=== PATIENT | female | born 1960 | race Caucasian/White ===

== ENCOUNTER 2019-03-10 09:17 | Inpatient (IN) | payer OTHER ==
[~2019-03-10] VITALS: Ht 170.2 cm; Wt 106.6 kg
--- OUTSIDE RECORDS SUMMARY | ~2019-03-10 | XMS | Clinical Summary ---
Demographics + + + | Address | [address] | | | [place] [address] | + + + | Home Phone | | + + + | Preferred Language | Unknown | + + + | Marital Status | | + + + | Scientologist Affiliation | 1028 | + + + | Race | Unknown | + + + | Ethnic Group | Unknown | + + + Author + + + | Author | [facility] | | | and [place] | + + + | Organization | [facility] | | | and [place] | + + + | Address | Unknown | + + + | Phone | Unavailable | + + + Support + + +---------+ + | Name | Relationship | Address | Phone | + + +---------+ + | Sunita Tran | ECON | Unknown | | + + +---------+ + Care Team Providers + +------+ + | Care Sizing End Bander Name | Role | Phone | + +------+ + | Hellen Barnett | PP | | | PA-C | | | + +------+ + Allergies + + + + + + | Active Allergy | Reactions | Severity | Noted | Comments | | | | | Date | | + + + + + + | Amoxicillin | Nausea And Vomiting | | 04/13/20 | | | | | | 17 | | + + + + + + | Codeine | Swelling | | 04/13/20 | Tongue swelling | | | | | 17 | | + + + + + + | Hydrocodone | Itching | | 04/13/20 | | | | | | 17 | | + + + + + + Medications + + + +---------+------+------+-------+ | Medication | Sig | Dispensed | Refills | Star | End | Statu | | | | | | t | Date | s | | | | | | Date | | | + + + +---------+------+------+-------+ | acyclovir | Take 400 mg by mouth | | 0 | | | Activ | | (ZOVIRAX) 400 MG | Daily. | | | | | e | | tablet | | | | | | | + + + +---------+------+------+-------+ | omeprazole | Take 20 mg by mouth | | 0 | | | Activ | | (PRILOSEC) 20 mg | every morning | | | | | e | | capsule | (before breakfast). | | | | | | + + + +---------+------+------+-------+ | traZODone | Take 50 mg by mouth | | 0 | | | Activ | | (DESYREL) 50 mg | nightly. | | | | | e | | tablet | | | | | | | + + + +---------+------+------+-------+ | albuterol | Inhale 2 puffs into | | 0 | | | Activ | | (VENTOLIN HFA) 90 | the lungs every 6 | | | | | e | | mcg/puff inhaler | hours as needed for | | | | | | | | Wheezing. | | | | | | + + + +---------+------+------+-------+ | tiZANidine | Take 1 tablet by | 30 | 0 | 07/3 | | Activ | | (ZANAFLEX) 4 mg | mouth every 6 hours | tablet | | 11/11 | | e | | tabletIndications: | as needed for Muscle | | | 18 | | | | S/P cervical spinal | spasms. | | | | | | | fusion, Right arm | | | | | | | | pain | | | | | | | + + + +---------+------+------+-------+ Active Problems + + + | Problem | Noted Date | + + + | DDD (degenerative disc disease), cervical | 06/03/2017 | + + + | S/P cervical spinal fusion | 06/03/2017 | + + + | Cervical subluxation, initial encounter | 06/03/2017 | + + + | Cervical spondylosis with radiculopathy | 06/03/2017 | + + + Family History + + +------+ + | Medical History | Relation | Name | Comments | + + +------+ + | Rheum arthritis | Brother | | | + + +------+ + | Cancer | Brother | | | + + +------+ + | Diabetes | Father | | | + + +------+ + | Diabetes | Mother | | | + + +------+ + | Heart disease | Mother | | | + + +------+ + + +------+ + + | Relation | Name | Status | Comments | + +------+ + + | Brother | | | | + +------+ + + | Brother | | | | + +------+ + + | Father | | | | + +------+ + + | Mother | | | | + +------+ + + Social History + +-------+ +--------+ + | Tobacco Use | Types | Packs/Day | Years | Date | | | | | Used | | + +-------+ +--------+ + | Former Smoker | | 1 | 20 | Quit: 04/13/2005 | + +-------+ +--------+ + + +---+---+---+ | Smokeless Tobacco: | | | | | Never Used | | | | + +---+---+---+ + + +---------+ + | Alcohol Use | Drinks/We | oz/Week | Comments | | | ek | | | + + +---------+ + | Yes | | | social | + + +---------+ + + + + | Sex Assigned at | Date Recorded | | | | + + + | Not on file | | + + + + + + + | Job Start Date | Occupation | Industry | + + + + | Not on file | Not on file | Not on file | + + + + + + + + | Travel History | Travel Start | Travel End | + + + + + + | No recent travel history available. | + + Last Filed Vital Signs + + + + | Vital Sign | Reading | Time Taken | + + + + | Blood Pressure | 116/76 | 08/22/2018 1428 PDT | + + + + | Pulse | 82 | 08/22/20181427 PDT | + + + + | Temperature | 35.4 C (95.8 F) | 08/15/2017747 PDT | + + + + | Respiratory Rate | 16 | 05/22/20181347 PDT | + + + + | Oxygen Saturation | 94% | 08/15/20170 PDT | + + + + | Inhaled Oxygen | - | - | | Concentration | | | + + + + | Weight | 110.4 kg (243 lb 6.2 | 08/22/20181427 PDT | | | oz) | | + + + + | Height | 170.2 cm (5' 7") | 08/22/20181427 PDT | + + + + | Body Mass Index | 38.12 | 08/22/20181427 PDT | + + + + Plan of Treatment + + + + + | Health Maintenance | Due Date | Last Done | Comments | + + + + + | Hepatitis C | | | | | Screening | 2 | | | + + + + + | Vaccine: | | | | | Dtap/Tdap/Td (1 - | 1 | | | | Tdap) | | | | + + + + + | Cervical Cancer | | | | | Screening (Pap) | 2 | | | + + + + + | Breast Cancer | | | | | Screening (Ages | 2 | | | | 50-74) | | | | + + + + + | Colorectal Cancer | | | | | Screening | 2 | | | | (Colonoscopy) | | | | + + + + + | Vaccine: Zoster (1 | | | | | of 2) | 2 | | | + + + + + | Vaccine: Influenza | | | | | (Season Ended) | 9 | | | + + + + + Implants + +--------+--------+ +--------+--------+--------+ | Implanted | Type | Area | Manufacture | Device | Shelf | Model | | | | | r | | Expira | / | | | | | | Identi | tion | Serial | | | | | | fier | Date | / Lot | + +--------+--------+ +--------+--------+--------+ | Imp Spn Lakshmi Peek [id number] - | Generi | N/A: | [employer] - | | 06/15/ | [id number] | | [id number]: Qty: 1 | c | Spine | MEDT | | 2024 | 1 / | | on 08/14/2017 by Ambrocio Andino | | Isabel | | | | /[id number] | | MD Cris | | al | | | | | + +--------+--------+ +--------+--------+--------+ | Imp Spn Lakshmi Peek [id number] - | Generi | N/A: | [employer] - | | 03/24/ | [id number] | | [id number]: Qty: 1 | c | Spine | MEDT | | 2024 | 1 / | | on 08/14/2017 by Ambrocio Andino | [place] | | | | /[id number] | | MD Cris | | al | | | | | + +--------+--------+ +--------+--------+--------+ | Imp Spn Plt Ti Zevo 57mm 3lvl | Generi | N/A: | [employer] - | | | [id number] | | - [id number]: Qty: 1 | c | Spine | MEDT | | | / / | | on 08/14/2017 by Ambrocio Andino | | Isabel | | | | | | MD Cris | | al | | | | | + +--------+--------+ +--------+--------+--------+ | Putty Bone Dbm Grftn 2.5cc - | Graft | N/A: | [employer] - | | 05/21/ | [id number] | | [id number]: Qty: 1 | | Spine | MEDT | | 2020 | | | on 08/14/2017 by Ambrocio Andino | | Isabel | | | | /[id number] | | MD Cris | | al | | | | [id number] | | | | | | | | / | + +--------+--------+ +--------+--------+--------+ | Screw D-Thrd Slf-Drl 3.5x13mm | Screw | N/A: | [employer] - | | | [id number] | | - [id number]: Qty: 2 | | Spine | MEDT | | | 3 / / | | on 08/14/2017 by Ambrocio Andino | | Isabel | | | | | | MD Cris | | colette | | | | | + +--------+--------+ +--------+--------+--------+ | Screw D-Thrd Slf-Drl 4.0x15mm | Screw | N/A: | [employer] - | | | [id number] | | - [id number]: Qty: 6 | | Spine | MEDT | | | 5 / / | | on 08/14/2017 by Ambrocio Andino | | Isabel | | | | | | MD Cris | | al | | | | | + +--------+--------+ +--------+--------+--------+ Results Not on filefrom Last 3 Months Insurance + +--------+ +--------+ +---------+------+ | Payer | Benefi | Subscriber | Effect | Phone | Address | Type | | | t Plan | ID | jhon | | | | | | / | | Dates | | | | | | Group | | | | | | + +--------+ +--------+ +---------+------+ | [employer] | NIDHI | [id number] | 05/23/20 | [phone] | | PPO | | | CSOUR | | 17-Pre | 2 | | | | | E | | sent | | | | | | FIRST | | | | | | | | CHOICE | | | | | | + +--------+ +--------+ +---------+------+ + +--------+ +--------+ + + | Guarantor Name | Accoun | Relation to | Date | Phone | Billing Address | | | t Type | Patient | of | | | | | | | | | | + +--------+ +--------+ + + | Oanh Mancini | Person | Self | [birth year] | [address] | | | al/Fam | | 1959 | [phone] | [place] | | | carlos | | | 5 (Home) | [address] | | | | | | [phone] | | | | | | | 7 (Work) | | + +--------+ +--------+ + + Advance Directives Patient has advance care planning documents, and code status on file. For more information, please contact:[facility] [place] [address] + + + + + | Code Status | Date | Date | Comments | | | Activated | Inactivated | | + + + + + | Full Code | 08/14/2017 | 08/15/2017 | | | | 14:33 | 13:20 | | + + + + +
--- OUTSIDE RECORDS SUMMARY | ~2019-03-10 | XMS | Clinical Summary ---
Demographics + + + | Address | [address] | | | [place] [address] | + + + | Home Phone | | + + + | Preferred Language | Unknown | + + + | Marital Status | | + + + | Taoism Affiliation | 1028 | + + + | Race | Unknown | + + + | Ethnic Group | Unknown | + + + Author + + + | Author | [facility] | | | and [place] | + + + | Organization | [facility] | | | and [place] | [...] Team Providers + +------+ + | Care Copping Machine Operator Name | Role | Phone | + [...] +--------+--------+ +--------+--------+--------+ | Imp Spn Lakshmi Peek [id number] - | Generi | N/A: | [employer] - | | 06/15/ | [id number] | | [id number]: Qty: 1 | c | Spine | MEDT | | 2024 | 1 / | | on 08/14/2017 by Ambrocio Andino | | Isabel | | | | /[id number] | | MD Cris | | al | | | | | + +--------+--------+ +--------+--------+--------+ | Imp Spn Lakshmi Peek [id number] - | Generi | N/A: | [employer] - | | 03/24/ | [id number] | | [id number]: Qty: 1 | c | Spine | MEDT | | 2024 | 1 / | | on 08/14/2017 by Ambrocio Andino | [place] | | | | /[id number] | | MD Cris | | al | | | | | + +--------+--------+ +--------+--------+--------+ | Imp Spn Plt Ti Zevo 57mm 3lvl | Generi | N/A: | [employer] - | | | [id number] | | - [id number]: Qty: 1 | c | Spine | MEDT | | | / / | | on 08/14/2017 by Ambrocio Andino | | Isabel | | | | | | MD Cris | | al | | | | | + +--------+--------+ +--------+--------+--------+ | Putty Bone Dbm Grftn 2.5cc - | Graft | N/A: | [employer] - | | 05/21/ | [id number] | | [id number]: Qty: 1 | | Spine | MEDT [...] N/A: | [employer] - | | | [id number] | | - [id number]: Qty: 2 | | Spine | MEDT | | | 3 / / | | on 08/14/2017 by Ambrocio Andino | | Isabel | | | | | | MD Cris | | colette | | | | | + +--------+--------+ +--------+--------+--------+ | Screw D-Thrd Slf-Drl 4.0x15mm | Screw | N/A: | [employer] - | | | [id number] | | - [id number]: Qty: 6 | | Spine | MEDT [...] +--------+ +---------+------+ | [employer] | NIDHI | [id number] | 05/23/20 | [phone] | | PPO | | | CSOUR [...] carlos | | | 5 (Home) | [phone] | | | | | | [phone] | | | | | | | 7 (Work) | | + +--------+ +--------+ + + Advance Directives Patient has advance care planning documents, and code status on file. For more information, please contact:[facility] [place] [address] + + + + + | Code Status | Date | Date | Comments | | | Activated | Inactivated | | + + + + + | Full Code | 08/14/2017 | 08/15/2017 | | | | 14:33 | 13:20 | | + + + + +
--- OUTSIDE RECORDS SUMMARY | ~2019-03-10 | XMS | Clinical Summary ---
Demographics + + + | Address | [address] | | | [place] [address] | + + + | Home Phone | | + + + | Preferred Language | Unknown | + + + | Marital Status | | + + + | Advent Affiliation | 1028 | + + + | Race | Unknown | + + + | Ethnic Group | Unknown | + + + Author + + + | Author | [facility] | | | and [place] | + + + | Organization | [facility] | | | and [place] [...] Team Providers + +------+ + | Care Otm Consultant Name | Role | Phone | + [...] +--------+--------+ +--------+--------+--------+ | Imp Spn Lakshmi Peek [id number] - | Generi | N/A: | [employer] - | | 06/15/ | [id number] | | [id number]: Qty: 1 | c | Spine | MEDT | | 2024 | 1 / | | on 08/14/2017 by Ambrocio Andino | | Isabel | | | | /[id number] | | MD Cris | | al | | | | | + +--------+--------+ +--------+--------+--------+ | Imp Spn Lakshmi Peek [id number] - | Generi | N/A: | [employer] - | | 03/24/ | [id number] | | [id number]: Qty: 1 | c | Spine | MEDT | | 2024 | 1 / | | on 08/14/2017 by Ambrocio Andino | [place] | | | | /[id number] | | MD Cris | | al | | | | | + +--------+--------+ +--------+--------+--------+ | Imp Spn Plt Ti Zevo 57mm 3lvl | Generi | N/A: | [employer] - | | | [id number] | | - [id number]: Qty: 1 | c | Spine | MEDT | | | / / | | on 08/14/2017 by Ambrocio Andino | | Isabel | | | | | | MD Cris | | al | | | | | + +--------+--------+ +--------+--------+--------+ | Putty Bone Dbm Grftn 2.5cc - | Graft | N/A: | [employer] - | | 05/21/ | [id number] | | [id number]: Qty: 1 | | Spine | MEDT [...] N/A: | [employer] - | | | [id number] | | - [id number]: Qty: 2 | | Spine | MEDT | | | 3 / / | | on 08/14/2017 by Ambrocio Adnino | | Isabel | | | | | | MD Cris | | colette | | | | | + +--------+--------+ +--------+--------+--------+ | Screw D-Thrd Slf-Drl 4.0x15mm | Screw | N/A: | [employer] - | | | [id number] | | - [id number]: Qty: 6 | | Spine | MEDT [...] +--------+ +---------+------+ | [employer] | NIDHI | [id number] | 05/23/20 | [phone] | | PPO | | | CSOUR [...] carlos | | | 5 (Home) | [address] | | | | | | [phone] | | | | | | | 7 (Work) | | + +--------+ +--------+ + + Advance Directives Patient has advance care planning documents, and code status on file. For more information, please contact:[facility] [place] [address] + + + + + | Code Status | Date | Date | Comments | | | Activated | Inactivated | | + + + + + | Full Code | 08/14/2017 | 08/15/2017 | | | | 14:33 | 13:20 | | + + + + +
--- OUTSIDE RECORDS SUMMARY | ~2019-03-10 | XMS | Clinical Summary ---
Demographics + + + | Address | [address] | | | [place] [address] | + + + | Home Phone | | + + + | Preferred Language | Unknown | + + + | Marital Status | | + + + | Confucianism Affiliation | 1028 | + + + | Race | Unknown | + + + | Ethnic Group | Unknown | + + + Author + + + | Author | [facility] | | | and [place] | + + + | Organization | [facility] | | | and [place] [...] Team Providers + +------+ + | Care Communications Associate Name | Role | Phone | + [...] +--------+--------+ +--------+--------+--------+ | Imp Spn Lakshmi Peek [id number] - | Generi | N/A: | [employer] - | | 06/15/ | [id number] | | [id number]: Qty: 1 | c | Spine | MEDT | | 2024 | 1 / | | on 08/14/2017 by Abmrocio Andino | | Isabel | | | | /[id number] | | MD Cris | | al | | | | | + +--------+--------+ +--------+--------+--------+ | Imp Spn Lakshmi Peek [id number] - | Generi | N/A: | [employer] - | | 03/24/ | [id number] | | [id number]: Qty: 1 | c | Spine | MEDT | | 2024 | 1 / | | on 08/14/2017 by Ambrocio Andino | [place] | | | | /[id number] | | MD Cris | | al | | | | | + +--------+--------+ +--------+--------+--------+ | Imp Spn Plt Ti Zevo 57mm 3lvl | Generi | N/A: | [employer] - | | | [id number] | | - [id number]: Qty: 1 | c | Spine | MEDT | | | / / | | on 08/14/2017 by Ambrocio Andino | | Isabel | | | | | | MD Cris | | al | | | | | + +--------+--------+ +--------+--------+--------+ | Putty Bone Dbm Grftn 2.5cc - | Graft | N/A: | [employer] - | | 05/21/ | [id number] | | [id number]: Qty: 1 | | Spine | MEDT [...] N/A: | [employer] - | | | [id number] | | - [id number]: Qty: 2 | | Spine | MEDT | | | 3 / / | | on 08/14/2017 by Ambrocio Andino | | Isabel | | | | | | MD Cris | | colette | | | | | + +--------+--------+ +--------+--------+--------+ | Screw D-Thrd Slf-Drl 4.0x15mm | Screw | N/A: | [employer] - | | | [id number] | | - [id number]: Qty: 6 | | Spine | MEDT [...] +--------+ +---------+------+ | [employer] | NIDHI | [id number] | 05/23/20 | [phone] | | PPO [...] carlos | | | 5 (Home) | [id number] | | | | | | [phone] | | | | | | | 7 (Work) | | + +--------+ +--------+ + + Advance Directives Patient has advance care planning documents, and code status on file. For more information, please contact:[facility] [place] [address] + + + + + | Code Status | Date | Date | Comments | | | Activated | Inactivated | | + + + + + | Full Code | 08/14/2017 | 08/15/2017 | | | | 14:33 | 13:20 | | + + + + +
[~2019-03-10 09:17] MED LIST: ACYCLOVIR400 MG PO; OMEPRAZOLE20 MG PO; TRAZODONE HCL50 MG PO
--- NOTE | 2019-03-10 12:57 | NUR ---
PT ARRIVED TO ROOM 122, REPORT RECEIVED FROM SUPPORT DBA. PT ALERT AND ORIENTED RATES PAIN AT 5/10 BUT STATES THIS IS TOLERABLE. PT DENIES NEED FOR PAIN MEDICATION AT THIS TIME. ASSESSMENT COMPLETED. CALL LIGHT IN REACH. WES DALE IN DOING VS'S. PT DENIES FURTHER NEEDS/CONCERNS AT THIS TIME.
--- NOTE | 2019-03-10 15:10 | EKG ---
[facility] [address] [facility] [place], [place] [address] Signed Normal sinus rhythm Normal ECG No previous ECGs available Confirmed by DAKOTA BRAR DO ([id number]) on 03/10/2019 3:10:42 PM Electronically Signed By: DAKOTA BRAR DO 03/10/19 1510 PATIENT NAME: DAKOTA BOONE Electrocardiogram DATE OF : 64 PHYSICIAN: DAKOTA BRAR DO REPORT #: [id number] REPORT IS CONFIDENTIAL AND NOT TO BE RELEASED WITHOUT AUTHORIZATION
--- NOTE | 2019-03-10 17:37 | NUR ---
Medications reconciled using pharmacy records and patient interview. Patient was hoping to take her home meds, but explained to patient that unfortunately, hospital policy requires that house pharmacy medications be used. Patient regularly takes trazodone 50mg at hs for sleep, so a request will be made to Dr Phillips for order for prn trazodone.
--- NOTE | 2019-03-10 17:38 | NUR ---
PT RESTING IN BED WATCHING TV AND VISITING WITH FAMILY AT BEDSIDE. PT REPORTS ACHING PAIN OF 7/10 TO ABD THAT COMES AND GOES IN WAVES. PT DENIES NASUEA. PRN PAIN MEDICAITONS ADMINIASTERED SEE EMAR. CALL LIGHT AND H20 IN REACH. NO FURHTER NEEDS VOICED.
--- NOTE | 2019-03-10 18:22 | CONS ---
[facility] [address] [place], [place] [address] Signed DATE OF CONSULTATION: 03/10/2019 CHIEF COMPLAINT: Left lower quadrant abdominal pain. HISTORY OF PRESENT ILLNESS: Oanh is a 58-year-old female who is known about her diverticular disease since 2013. She has had at least one prior documented attack in 2013. She had several other episodes of left lower quadrant abdominal pain treated with outpatient antibiotics that resolved. On this occasion, she waited six days hoping to see her primary care provider tomorrow. However, her pain is getting worse and she finally came to emergency room for evaluation. She is not systemically ill or toxic. Her white count is borderline. It is actually normal at 9.9. However, she is quite tender in the left lower quadrant. CT scan of abdomen and pelvis was performed and she has a very thickened sigmoid colon with a 2 cm fluid collection in the wall of the proximal sigmoid colon. No obvious abscess or free air. In the meantime, she has received some IV Dilaudid and her antibiotics including cefepime and Flagyl. I was asked to admit her as a general surgeon on-call. PAST MEDICAL HISTORY: Diverticulosis, colonic polyps, insomnia, gastroesophageal reflux disease, obesity, and right-sided abdominal wall shingles since age 8. PAST SURGICAL HISTORY: Full hysterectomy for bleeding, laparoscopic cholecystectomy, sinus surgery, and one if not two prior colonoscopies. SOCIAL HISTORY: She quit smoking. She has two or three drinks in a week. She is now and has 2 children. Her has a son and a daughter. Aaron Barnett is her primary care provider. She prefers the [facility]. 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 FAMILY HISTORY: Mom had diabetes, coronary artery disease, and had a CABG x4. Dad had diabetes. Her brother of Goodwin sarcoma. Her other brother had very significant rheumatoid arthritis. REVIEW OF SYSTEMS: She had 10 systems reviewed. There is nothing new to add. ALLERGIES: Codeine, hydrocodone, oxycodone, hydrocortisone. She said Dilaudid is fine. MEDICATIONS: Electronically Signed By: TAYLOR PHILLIPS MD 03/10/19 1822 PATIENT NAME: OANH BOONE CONSULTATION DATE OF : 64 REPORT #: [id number] PHYSICIAN: TAYLOR PHILLIPS MD PCP: AARON BARNETT PA-C REPORT IS CONFIDENTIAL AND NOT TO BE RELEASED WITHOUT AUTHORIZATION [facility] [address] [place], [place] [address] Signed Omeprazole, acyclovir, and trazodone. PHYSICAL EXAMINATION: VITAL SIGNS: Her blood pressure is 113/67, heart rate 84, respiratory rate 20, and temperature 98.8. She is 5 feet 7 inches tall, 106 kg exam. GENERAL: Oanh is a 58-year-old female who generally appears healthy and at her stated age. She is obese. Her granddaughter is with her along with our nurse, Drew. She does not appear systemically ill or toxic. Her pain is controlled. LUNGS: Clear to auscultation. HEART: Regular rate and rhythm. ABDOMEN: Obese, but soft. She is tender in the left lower quadrant despite Dilaudid. LABORATORY DATA: Her white blood cell count is 9.9, neutrophils are 69, hemoglobin is 13. BUN 15, creatinine 0.75, glucose 109. Liver function tests are negative. Albumin is 4.0, lipase 11. Urine specific gravity is 1.024. RADIOGRAPHIC STUDIES: The CT scan of abdomen and pelvis is reviewed along with the report. She clearly has a very thickened sigmoid colon. There is a 2 cm fluid collection in the wall of the proximal sigmoid colon. ASSESSMENT AND PLAN: Oanh is a 58-year-old female who presents with sigmoid diverticulitis. She has been admitted, given IV fluids, Dilaudid and some antibiotics. We are going to continue in that direction. We will let her have some clear liquids. She understands this could take 2 or 3 or 4 days to clear before we can send her home on p.o. antibiotics. Once again, she is very reticent to have surgery. She is hoping this will clear the antibiotics and that she can avoid surgery. I reviewed diverticulitis with her in detail. She understands that if this becomes a significant issue for her, she will need surgery. She has expressed understanding and agrees above plan. Taylor Phillips MD ALB/MODL /[id number] cc: Aaron Barnett Electronically Signed By: TAYLOR PHILLIPS MD 03/10/19 1822 PATIENT NAME: OANH BOONE CONSULTATION DATE OF : 64 REPORT #: [id number] PHYSICIAN: TAYLOR PHILLIPS MD PCP: AARON BARNETT PA-C REPORT IS CONFIDENTIAL AND NOT TO BE RELEASED WITHOUT AUTHORIZATION [facility] [address] [facility] [place], [place] [address] Signed Taylor Phillips MD Copies: TAYLOR PHILLIPS MD ~ Electronically Signed By: TAYLOR PHILLIPS MD 03/10/19 1822 PATIENT NAME: OANH BOONE Rick CONSULTATION DATE OF : 64 REPORT #: [id number] PHYSICIAN: TAYLOR PHILLIPS MD PCP: AARON BARNETT PA-C REPORT IS CONFIDENTIAL AND NOT TO BE RELEASED WITHOUT AUTHORIZATION
--- NOTE | 2019-03-10 18:34 | NUR ---
PT RESTING SUPINE IN BED WATCHING TV AND VISITING WITH FAMILY AT BEDSIDE. CALL LIGHT AND H2O IN REACH. VSS. IV ABX INFUSING.
--- NOTE | 2019-03-10 19:10 | NUR ---
SHIFT REPORT RECEIVED FROM WILLISCAKATE LU AT BEDSIDE. PT AWAKE AND RESTING IN BED. IV FLUIDS AND IV ABX INFUSING, IV SITE WNL. PT REPORTS INTERMITTENT NAUSEA, BUT DENIES NEED FOR NAUSEA MEDICATION AT THIS TIME. PT INSTRUCTED TO USE CALL LIGHT IF NAUSEA WORSENS OR CONTINUES. PT VERBALIZES UNDERSTANDING. CALL LIGHT IN REACH.
--- NOTE | 2019-03-10 20:30 | NUR ---
SCHEDULED MEDICATIONS ADMINISTERED BY FRACTIONATION PLANT SUPERVISOR ROBERT (SEE EMAR). PRN PAIN MEDICATION ALSO ADMINISTERED.
--- NOTE | 2019-03-10 21:20 | NUR ---
ASSESSMENT COMPLETE. PT A/OX4, RATES PAIN 4-5, BUT DESCRIBES TOLERABLE. DENIES NEED FOR INTERVENTION AT THIS TIME. IV FLUIDS AND IV ABX INFUSING PER MD ORDERS, IV SITE WNL. PT REPORTED POSSIBLE LEAKING AT IV SITE AFTER VOIDING. CURRENT OPSITE REMOVED. IV ASSESSED. IV FLUSHED, BLOOD RETURN NOTED. CATHETER HUB TIGHTENED. NEW OPSITE IN PLACE, NO LEAKING NOTED. PT ON CLEAR LIQUID DIET, NO NAUSEA AT THIS TIME. BOWEL TONES ACTIVE. ABDOMEN TENDER. NO FURTHER NEEDS AT THIS TIME. CALL LIGHT IN REACH.
--- NOTE | 2019-03-10 21:30 | NUR ---
PT ASKING ABOUT POSSIBLE TRAZODONE FOR INSOMNIA. HOME DOSE 50 MG PRN AT BEDTIME PER MED REC. THIS RN SPOKE TO DR ARIAS ABOUT PT'S REQUEST. VERBAL ORDER READ BACK FOR 50 MG TRADOZONE PRN AT BEDTIME. PER DR ARIAS, "YOU CAN GIVE HER THE TRAZODONE. JUST USE CLINICAL JUDGEMENT. DON'T GIVE IT TO HER IF SHE'S TAKING A LOT OF NARCOTICS AND IS ALREADY SLEEPY".
--- NOTE | 2019-03-10 21:45 | NUR ---
ROUNDED CHARGE. PATIENT IS RESTING IN BED WITH EYES CLOSED, RR 17. CALL LIGHT IN REACH.
--- NOTE | 2019-03-10 23:26 | NUR ---
PT TALKING ON PERSONAL PHONE. APPEARS COMFORTABLE, NO FACIAL GRIMACING OR DISTRESS NOTED. CALL LIGHT IN REACH. PT DENIES FURTHER NEEDS.
--- NOTE | 2019-03-10 23:50 | NUR ---
SCHEDULED IV ABX INFUSING, IV SITE WNL. NO FURTHER NEEDS. CALL LIGHT IN REACH.
--- NOTE | 2019-03-11 00:20 | NUR ---
SCHEDULED IV ABX INFUSING (SEE EMAR). IV SITE WNL. PT AWAKE AND WATCHING TELEVISION. DENIES FURTHER NEEDS, CALL LIGHT IN REACH.
--- NOTE | 2019-03-11 01:48 | NUR ---
ASSESSMENT COMPLETE. NO NEW CONCERNS. VSS AND RECORDED. PT ON RA, A/OX4. REPORTS 5/10 PAIN. PRN PO DILAUDID ADMINISTERED. BOWEL TONES ACTIVE, PT DENIES NAUSEA. ABDOMENAL TENDERNESS NOTED. IV FLUIDS INFUSING PER MD ORDERS, IV SITE WNL. NO FURTHER NEEDS, CALL LIGHT IN REACH.
--- NOTE | 2019-03-11 01:51 | NUR ---
VITALS AND I&OS DONE AND CHARTED. BEDSIDE TABLE AND CALL LIGHT IN REACH. PT NEEDS NOTHING MORE AT THIS TIME.
--- NOTE | 2019-03-11 04:21 | NUR ---
PT REPORTS RETURN OF NAUSEA. PRN ZOFRAN ADMINISTERED. IV FLUIDS AND IV ABX INFUSING PER MD ORDERS, IV SITE WNL. PT DENIES ADDITIONAL NEEDS. CALL LIGHT IN REACH.
--- NOTE | 2019-03-11 05:10 | NUR ---
PT SLEPT ON AND OFF THIS SHIFT. PT A/OX4, PAIN CONTROLLED WITH PRN DILAUDID. VSS, PT ON RA. USES CALL LIGHT APPROPERAITELY, A/OX4. AMBULATES INDEPENDENTLY. CLEAR LIQUID DIET, ZOFRAN X1 GIVEN FOR NAUSEA. IV FLUIDS AND SCHEDULED IV ABX. IV SITE WNL. PT VOIDING QS, NO BM THIS SHIFT. SHINGLES TO BUTTOCKS, INTACT.
--- NOTE | 2019-03-11 06:30 | NUR ---
VSS AND RECORDED. I&O'S RECORDED. PT REPORTS 7/10 PAIN, PRN DILAUDID AND TORADOL ADMINISTERED. ROOM TIDED. CALL LIGHT IN REACH. SCHEDULED IV ABX INFUSING, (SEE EMAR). IV SITE WNL.
--- NOTE | 2019-03-11 07:40 | NUR ---
Pt awake, alert and oriented x3. Pt reports abd pain is tolerable at this time. Pt has no needs at this time.
--- NOTE | 2019-03-11 10:15 | NUR ---
Admin Dilaudid 0.5mg ivp for reports of 6/10 abd pain.
--- NOTE | 2019-03-11 10:40 | NUR ---
VS AND I&O'S HAVE BEEN TAKEN AND DOCUMENTED. PT STATES THAT SHE HAS NO NEEDS AT THIS TIME. INFORMED PT TO CALL IF SHE NEEDS ANYTHING. CALL LIGHT IS IN REACH.
--- NOTE | 2019-03-11 11:00 | NUR ---
THIS RN ASSUMING CARE OF PT. REPORT RECEIVED FROM WES MCKNIGHT. PT REPORTS 6 PAIN. PT STATES THE LAST DOSE OF PAIN MEDICATION "DID NOTHING, I THOUGHT IT MIGHT BE A PLACEBO." PT REQUESTS CHICKEN BROTH. PT WATCHING TV. NO ADDITIONAL REQEUSTS OR COMPLAINTS AT THIS TIME.
--- NOTE | 2019-03-11 11:49 | NUR ---
NOON ASSESSMENT DUE. PT SITTING UP IN BED. PT CONTINUES TO REPORT 6/10 PAIN. PT STATES LAST DOES OF DILAUDID "DID NOTHING." SEE MAR FOR MEDCATIONS GIVEN. PT AMBULATES TO RESTROOM INDEPENDANTLY, PT STEADY ON FEET WITH SBA. BOWEL TONES HEARD. PT SIPPING CHICKEN BROTH. WARM PACK PROVIDED "FOR CRAMPING." NO ADDITIONAL REQUESTS OR COMPLAINTS AT THIS TIME. CALL LIGHT WITHIN REACH.
--- NOTE | 2019-03-11 12:39 | NUR ---
PT CALL LIGHT ON. PT REPORTS NASUEA. SEE MAR FOR MEDICATION GIVEN. EMESIS BAG PROVIDED. NO EMESIS NOTED AT THIS TIME. PT RESTING IN BED. NO ADDITIONAL REQUESTS OR COMPLAINTS AT THIS TIME.
--- NOTE | 2019-03-11 13:55 | NUR ---
PT CALL LIGHT ON. PUMP ALARMING, PUMP RESTRATED. PIV ASSESSED, PIV WNL, NO REDNESS, SWELLING, OR PAIN. PT REPORTS NAUSEA HAS IMPROVED. NO ADDITIONAL REQUESTS OR COMPLAINTS AT THIS TIME. CALL LIGHT WITHIN REACH.
--- NOTE | 2019-03-11 14:51 | NUR ---
PATIENT IN BED WATCHING TV. CALL LIGHT IN REACH. NO FURTHER NEEDS AT THIS TIME.
--- NOTE | 2019-03-11 16:30 | NUR ---
AFTERNOON ASSESSMENT DUE. PT REPORTS 5/10 PAIN AND WOULD LIKE PAIN MEDICATION. SEE MAR FOR MEDICATION GIVEN. ASSESSMENT DONE. PT STATES SHE IS FEELING "BETTER" THAN YESTERDAY. NO ADDITIONAL REQUESTS OR COMPLAINTS. CALL LIGHT WITHIN REACH.
--- NOTE | 2019-03-11 17:46 | NUR ---
IV ABX DUE. THIS RN TO BEDSIDE. PT STATES PAIN HAS IMPROVED BUT CONTINUES TO REPORT PAIN AT 5/10. PT REPORTS NECK PAIN. PT ENCOURAGED TO AMBULATE, UP IN [place], AMBULATED 2LAPS WITH SBA. IV ABX STARTED. NO ADDITIONAL REQUESTS OR COMPLAINTS. CALL LIGHT WITHIN REACH.
--- NOTE | 2019-03-11 18:13 | NUR ---
PT HERE FOR DIVERTICULITIS EXACERBATION. SBA WITH AMBULATION ENCOURAGED. PT TOLERATING CLEAR LIQUID DIET WITH ONE EPISODE OF NAUSEA THIS SHIFT, NO EMESIS NOTED, RESOLVED WITH PRN NAUSEA MEDICATIONS. IV ABX INFUSING WITH CONTINIOUS IV FLUIDS. REOCCURING SHINGLES SHOW NO CHANGE, ISOLATION PRECAUTIONS NOT REQUIRED. TRAZADONE ADDED THIS SHIFT PRN HS. VOIDING QUANTITY SUFFICIENT. PT USES CALL LIGHT APPROPRIATLY.
--- NOTE | 2019-03-11 18:37 | NUR ---
IV ABX DUE. THIS RN TO ROOM. PT CONTINUES TO REPORTS NECK PAIN AT 4/10 AND RATES HER ABDOMENAL PAIN AT 6/10. PT UP TO AMBULTE IN HALLS FOR AN ADDITIONAL 3 LAPS. WHILE ON WALK PT STATES "THE PAIN IS SO MUCH BETTER THAN YESTERDAY." PAIN MEDICATION GIVE PER PT REQUEST. PT PLAYING ON PHONE UP IN CHAIR. NO ADDITIONAL REQUESTS OR COMPLAINTS AT THIS TIME. CALL LIGHT WITH ON REACH.
--- NOTE | 2019-03-11 18:56 | NUR ---
VS AND I&O'S TAKEN AND DOCUMENTED. PT STATES THAT SHE DOESN'T NEED ANYTHING AT THIS TIME. INFORMED PT TO CALL IF SHE NEEDS ANYTHING. CALL LIGHT IS IN REACH.
--- NOTE | 2019-03-11 19:10 | NUR ---
BEDSIDE REPORT RECEIVED FROM WES ALLEN. PT BACK IN BED FROM RESTROOM AMBULATING INDEPENDENTLY. PT RATES PAIN 5/10 IN ABDOMEN. HEAT PACK ON NECK. IV ANTIBIOTIC INFUSING WNL. CALL LIGHT IN REACH.
--- NOTE | 2019-03-11 20:20 | NUR ---
CALL LIGHT ANSWERED, PT C/O NAUSEA, NO EMESIS. PRN ONDANSETRON ADMINISTERED ORDERED. ASSESSMENT COMPLETE. PT RATES PAIN 6/10 IN ABDOMEN. ABDOMEN SOFT, TENDER WITH PALPATION, BOWEL TONES ACTIVE X 4. IVF INFUSING WNL. WARM BLANKET PROVIDED. VSS. CALL LIGHT IN REACH.
--- NOTE | 2019-03-11 22:58 | NUR ---
CHECKED ON PT, RESTING IN BED WITH EYES CLOSED. BREATHING EQUAL AND NON-LABORED. LIGHTS OFF IN ROOM.
--- NOTE | 2019-03-12 00:12 | NUR ---
CALL LIGHT ANSWERED. PT C/O 04/01 PAIN IN ABDOMEN. PRN PAIN MEDICATION ADMINSITERED. PT UP AMBULATING HALLWAY INDEPENDENTLY. IV ANTIBIOTIC INFUSING WNL. CALL LIGHT IN REACH. ICE CHIPS PROVIDED.
--- NOTE | 2019-03-12 01:10 | NUR ---
IN PT ROOM TO CHECK ON PT. PT RATES PAIN 5/10 IN ABDOMEN. LYING IN BED WATCHING TV. PT DENIES NAUSEA AT THIS TIME. URINE HAT EMPTIED 450 MLS CLEAR YELLOW URINE. ICE CHIPS PROVIDED. NO ADDITIONAL REQUESTS AT THIS TIME. CALL LIGHT IN REACH.
--- NOTE | 2019-03-12 03:51 | NUR ---
CHECKED ON PT. RESTING IN BED ON SIDE. EYES CLOSED, BREATHING EQUAL AND NON-LABORED. LIGHTS OFF IN ROOM.
--- NOTE | 2019-03-12 05:35 | NUR ---
PT ASSESSMENT COMPLETE. PT RATES PAIN 5-6/10 IN ABDOMEN, "CRAMPING". PRN PAIN MEDICATION ADMINISTERED. ICE WATER PROVIDED. VSS. ABDOMEN SOFT, BOWEL TONES HYPOACTIVE X 4. PT DENIES NAUSEA. CALL LIGHT IN REACH. NO REQUESTS AT THIS TIME.
--- NOTE | 2019-03-12 06:19 | NUR ---
PT RESTING IN BED WELL THIS SHIFT. AMBULATING IN HALLWAY INDEPENDENTLY. PAIN CONTROLLED WITH PRN PAIN MEDICATION. PRN NAUSEA MEDICATION, ONE EPISODE OF EMESIS THIS SHIFT. CLEAR LIQUID DIET. IVF AND ANTIBIOTICS INFUSING WNL THROUGHOUT SHIFT. ABD SOFT, TENDER WITH PALPATION, BOWEL TONES PRESENT.
--- NOTE | 2019-03-12 07:12 | NUR ---
REPORT RECEIVED FROM WES HUIZAR. PT SITTING ON EDGE OF BED. PT REPORTS 5/10 PAIN THAT IS TOLERABLE AT THIS TIME. PT DENIES ADDITIONAL REQUESTS OR COMPLAINTS AT THIS TIME. CALL LIGHT WITHIN REACH.
--- NOTE | 2019-03-12 10:00 | NUR ---
MORNING ASSESSMENT DUE. PT REPORTS 6/10 PAIN AND NAUSEA. SEE MAR FOR MEDICATION GIVEN. ASSESSMENT DONE. PT UP TO AMBULATE IN [place], 5 LAPS DONE. PT UP TO RESTROOM AND THEN UP TO CHAIR. PT DENIES ANY NEW S/S IN GENERAL AND STATES HER ONLY CONCERN IS "WHEN I'LL HAVE A BOWEL MOVEMENT." PT PLAYING ON PHONE. HEAT PACK PROVIDED PER PT REQUEST. PT REFUSES HEPARIN AND STATES SHE UNDERSTANDS THE RISKS. CALL LIGHT WITHIN REACH. NO ADDITIONAL REQUESTS OR COMPLAINTS AT THIS TIME.
--- NOTE | 2019-03-12 10:53 | NUR ---
THIS RN TO ROOM TO CHECK ON PT. PT REPROTS 5/ PAIN AND "STILL A LITTLE NASUEA." PT DENIES ADDITIONAL REQUESTS OR COMPLAINTS. CALL LIGHT WITHIN REACH.
--- NOTE | 2019-03-12 11:55 | NUR ---
REAL ESTATE FIRM MANAGER REPORS TO THIS RN THAT PT HAD EPISODE OF EMESIS. THIS RN TO BEDSIDE. PIV NOTED TO BE LEAKING. PIV DC'D PER PROTOCOL. NEW PIV PLACED PER PROTOCOL. PHENEGRAN GIVEN. PT CONTINUES TO REPORT 5/10 PAIN, PT STATES PAIN IS TOLERABLE AT THIS TIME. ASSESSMENT DONE. PT DENIES ADDITIONAL REQUESTS OR COMPLAINTS AT THIS TIME. CALL LIGHT WITHIN REACH.
--- NOTE | 2019-03-12 13:03 | NUR ---
THIS RN TO ROOM TO CHECK ON PT. PT FINISHED WITH SHOWER. PT BACK TO BED "TO REST." PT CONTINUES TO REPORT "STEADY QUIZINESS." PT REPORTS 5/10 PAIN AT THIS TIME AND DENIES NEED FOR ADDITIONAL MEDICATION. IV ABX AND FLUIDS RESTRATED. PT WATCHING TV AND VISITING WITH [employer]. NO ADDITIONAL REQUESTS OR COMPLAINTS AT THIS TIME.
--- NOTE | 2019-03-12 13:49 | NUR ---
PT AMBULATING IN HALLWAY WITH FAMILY. SHE IS ALERT, ORIENTED AND SEEMS TO BE ENJOYING GETTING UP AND OUT OF RM. GAVE ENCOURAGEMENT AND WILL CONTINUE TO FOLLOW NEEDED
--- NOTE | 2019-03-12 14:54 | NUR ---
PT SHOWERED. NEW GOWN AND SOCKS GIVEN. PT WALKING AROUND ROOM.
--- NOTE | 2019-03-12 17:30 | NUR ---
AFTERNOON ASSESSMENT AND MEDICATION DUE. PT UP IN BED. PT CONTINUES TO REPORT NAUSEA AND 5/10 PAIN IN ABDOMEN. PT ENCORUAGED TO AMBULATE. PT UP TO WALK 6 LAPS AROUND UNIT AND DOWN CHAVARRIA. PT REPORTS NAUSEA IMPROVES WITH AMBULATION. ASESSMENT DONE. MEDICATION GIVEN. PT WATCHING TV. NO ADDITIONAL REQUESTS OR COMPLAINTS. CALL LIGHT WITHIN REACH.
--- NOTE | 2019-03-12 18:41 | NUR ---
PT HERE FOR DIVERTICULITIS EXACERBATION. PAIN 5-6/10 THIS SHIFT, PRN PAIN MEDICATIONS GIVEN. PT DEALING WITH NAUSEA THIS SHIFT. 1 EPISODE OF EMESIS. PHENEGRAN AND ZOFRAN GIVEN, AMBULATION ENCORUAGED AND HELPING TO RESOLVE NAUSEA. PT AMBULATED MULTIPLE TIMES AND MULTIPLE LABS THIS SHIFT. NEW PIV STARTED IN LEFT FORARM, GOOD BLOOD RETURN. PT USES CALL LIGHT APPROPRAITLY.
--- NOTE | 2019-03-12 19:10 | NUR ---
BEDSIDE REPORT RECEIVED FROM WES ALLEN. PT UP AT SIDE OF BED EATING CLEAR LIQUID TRAY, TALKING ON CELL PHONE. IVF AND ANTIBIOTIC INFUSING WNL. NO REQUESTS AT THIS TIME. CALL LIGHT IN REACH.
--- NOTE | 2019-03-12 19:25 | NUR ---
CHARGE NURSE ROUNDS. PT IN ROOM, WATCHING TV. DENIES NEEDS.
--- NOTE | 2019-03-12 19:30 | NUR ---
MOVED PT TO ROOM 115. PT STATED RELIEF HAVING A ROOM WITH A VIEW.
--- NOTE | 2019-03-12 20:45 | NUR ---
PT OUT OF ROOM AMBULATING IN HALLWAY INDEPENDENTLY. IVF INFUSING.
--- NOTE | 2019-03-12 21:33 | NUR ---
ASSESSMENT COMPLETE. PT RATES PAIN 4.5-5/10 PRN TYLENOL AND TORADOL IV ADMINISTERED WNL. IVF AND ANTIBIOTIC INFUSING ORDERED. PT RESTING IN BED ON SIDE BOWEL TONES ACTIVE X4, ABDOMEN SOFT, NONTENDER. VSS. CALL LIGHT IN REACH. ICE WATER PROVIDED. NO ADDITIONAL REQUESTS AT THIS TIME.
--- NOTE | 2019-03-12 23:12 | NUR ---
PT APPEARS TO BE SLEEPING, SNORING, EYES CLOSED. BREATHING NON-LABORED.
--- NOTE | 2019-03-12 23:55 | NUR ---
IV ANTIBIOTICS INFUSING WNL ORDERED. PT RATES PAIN 4.5-5/10 WHEN CRAMPING "ITS OKAY WHEN CRAMPS GO AWAY". URINE EMPTIED 550 ML CLEAR YELLOW URINE. NO ADDITIONAL REQUESTS, LYING IN BED PLAYING GAME ON CELL PHONE. CALL LIGHT IN REACH.
--- NOTE | 2019-03-13 01:31 | NUR ---
PT RESTING IN BED WITH EYES CLOSED, SNORING, RR 18. LIGHTS OFF IN ROOM. IV ANTIBIOTIC INFUSING.
--- NOTE | 2019-03-13 02:50 | NUR ---
CALL LIGHT ANSWERED. PT RESTING IN BED AWAKE WATCHING TV. NEW BAG IVF INFUSING WNL WITH IV ANTIBIOTICS. PT RATES PAIN 4/10, DENIES NEED FOR PRN PAIN MEDICATION. CALL LIGHT IN REACH.
--- NOTE | 2019-03-13 05:58 | NUR ---
CALL LIGHT ANSWERED. PRN PAIN MEDICATION ADMINISTERED FOR 5.5-6/10 PAIN IN ABDOMEN. PRN PAIN MEDICATION ADMINISTERED. IV ANTIBIOTICS INFUSING WNL. VSS. INDEPENDENT TO RESTROOM FOR VOID. BOWEL TONES ACTIVE X 4, ABD SOFT, NONTENDER. PT DENIES NAUSEA. CALL LIGHT IN REACH.
--- NOTE | 2019-03-13 06:28 | NUR ---
PT UP AMBULATING HALLWAYS INDEPENDENTLY THIS SHIFT. VOIDING QS. BOWEL TONES ACTIVE X 4, ABD SOFT. DENIES NAUSEA THIS SHIFT. FLATUS PRESENT. VSS. CLEAR LIQUID DIET.
--- NOTE | 2019-03-13 07:55 | NUR ---
BEDSIDE REPORT RECIEVED, PT RESTING IN BED WITH NO COMPLIATS. CALL DEXTER WITHIN REACH.
--- NOTE | 2019-03-13 08:17 | NUR ---
Patient is up breakfast ordered. fesh waterr was given .call light in reach.
--- NOTE | 2019-03-13 09:11 | NUR ---
PT HAD BEEN UP WALKING IN THE [place], SHE IS NOW LAYING IN HER BED. PT STATES SHE HAS SOME PAIN AND NAUSEA BUT DECLINES MEDICATION AT THIS TIME. CALL DEXTER WITHIN REACH.
--- NOTE | 2019-03-13 09:17 | NUR ---
PT REFUSED HER HEPARIN DOSE AND SHE STATES SHE HAS BEEN REFUSING IT. PT STATES UNDERSTANDING FOR WHY IT IS ORDERED AND CONTINUES TO STATE SHE DOES NOT WANT IT. PT HAS BEEN AMBULATING IN THE HALLS.
--- NOTE | 2019-03-13 09:38 | NUR ---
PT SHOWERED AND IS NOW BACK TO HER BED SITTING ON THE SIDE. IV RESTARTED AFTER HER SHOWER. PT DENIES ANY NEW PROBLEMS.
--- NOTE | 2019-03-13 12:05 | NUR ---
PT COMPLAINS OF NAUSEA AND WAS MEDICATED ORDERED.
--- NOTE | 2019-03-13 13:22 | NUR ---
VISITED WITH PT SHE SAT ON SIDE OF BED IN HER CLOTHES. 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 GAVE PT A P.SHAWL, AND A BLESSING. WILL FOLLOW A NEEDED
--- NOTE | 2019-03-13 14:17 | NUR ---
PT COMPLAINS OF PAIN RATED AT A 7/10 AND SOME NAUSEA. PT MEDICATED, SEE EMAR. PT SITTING IN HER CHAIR VISITING AT THIS TIME.
--- NOTE | 2019-03-13 15:57 | NUR ---
Pt sleeping at this time.
--- NOTE | 2019-03-13 16:38 | NUR ---
PT STATES HER PAIN AND NAUSEA ARE STILL PRESENT SLIGHTLY BUT THAT THEY ARE EACH MUCH BETTER AND CONTROLED AT THIS TIME.
--- NOTE | 2019-03-13 17:50 | NUR ---
PT STATES HER PAIN IS "NOT BAD" AND HER NAUSEA IS "OKAY".
--- NOTE | 2019-03-13 18:27 | NUR ---
LEFT FA IV INFILTRATED WHILE RUNNING FLAGYL. SITE DC'D, ELEVATED AND WARM COMPRESS PLACED. NEW IV STARTED IN THE RIGHT FA.
--- NOTE | 2019-03-13 18:41 | NUR ---
PT'S RIGHT ARM OLD IV SITE REMAINS ELEVATED WITH WARM BLANKETS IN PLACE. THE PT CONTINUES TO DENIE ANY PAIN AT THE SITE.
--- NOTE | 2019-03-13 19:45 | NUR ---
PT RESTING IN BED, AOX4, APPROPRIATE, PT DENIES ANY NEEDS AT THIS TIME, IV FLUIDS INFUSING PER EMAR WNL. CALL LIGHT WITHIN REACH. FALL PRECAUTIONS IN PLACE.
--- NOTE | 2019-03-13 21:00 | NUR ---
EVENING MEDS ADMINISTERED, PT REFUSED HEPARIN INJECTION, EDUCATION PROVIDED , PT REMAINED TO INSIST THAT SHE DID NOT WANT THE HEPARIN INJECTION, PT AOX4, APPROPRIATE, PT STATES THAT HER PAIN IS TOLERABLE AT THIS TIME, BT ACTIVE, EDUCATION PROVIDED REGARDING PAIN MANAGEMENT, PT DENIES NAUSEA, IV FLUIDS INFUSING PER EMAR WNL, PT UP TO WALK IN HALLS TOLERATING AMBULATING WELL. IV FLUIDS INFUSING PER EMAR WNL. CMS INTACT. LS CLEAR, DENIES ANY NEEDS AT THIS TIME, CALL LIGHT WITHIN REACH. FALL PRECAUTIONS IN PLACE.
--- NOTE | 2019-03-14 | NUR ---
IN ROOM TO ADMINISTER SCHEDULED ABX, IV FLUIDS INFUSING PER EMAR WNL, PT CONTINUES TO DENY NAUSEA OR SIGNIFICANT PAIN, PT DENIES ANY NEEDS AT THIS TIME, CALL LIGHT WITHIN REACH. FALL PRECAUTIONS IN PLACE.
--- NOTE | 2019-03-14 01:30 | NUR ---
PT VOIDED 550 MLS OF CLEAR YELLOW URINE, PT BACK TO BED, ASSESSMENT COMPLETE, UNCHANGED FROM PREVIOUS, PT'S BT ACTIVE, NO NAUSEA, NO VOMITING, NO SIGNIFICANT PAIN, LS CLEAR, PT RESTING IN BED, IV FLUIDS INFUSING PER EMAR WNL, CALL LIGHT WITHIN REACH.
--- NOTE | 2019-03-14 03:27 | NUR ---
CALL LIGHT ANSWERED, PT REQUESTING PRN PAIN MEDICATION, PT STATES PAIN IS 5.5/10, PRN TORADOL GIVEN PER EMAR, PT DENIES FURTHER NEEDS AT THIS TIME, CALL LIGHT WITHIN REACH. IV FLUIDS INFUSING PER EMAR WNL.
--- NOTE | 2019-03-14 05:05 | NUR ---
PT AOX4 THIS SHIFT, APPROPRIATE, PT'S VSS, URINE OUTPUT QS, IV FLUIDS INFUSING PER EMAR WNL. PT'S BT ACTIVE, HAS NOT BEEN PASSING GAS OR ANY STOOL THIS SHIFT, PT RECEIVED PRN PAIN MEDICATION X1 THIS SHIFT RELATED TO ABDOMINAL PAIN, SEE EMAR. NO C/O NAUSEA THIS SHIFT, PT TOLERATING FULL LIQUID DIET THIS SHIFT, AMBULATING IN HALLS X1, USES CALL LIGHT APPROPRIATELY, INDEPENDENT IN ROOM.
--- NOTE | 2019-03-14 07:25 | NUR ---
REPORT RECIVED FROM BAR TACKER SEWING MACHINE RN. PT LYING IN BED. QUIRINO PAIN AT THIS TIME. BREAKFAST ORDERED. QUIRINO NEEDS. D5LR @ 55 INFUSING CONCURRENTLY WITH ABX. CALL LIGHT IN REACH.
--- NOTE | 2019-03-14 10:47 | NUR ---
PT AMBULATING HALLS. TOLERATING WELL.
--- NOTE | 2019-03-14 15:57 | NUR ---
KNOCKED ON DOOR WENT IN AND CHECK ON PATIENT. ASKED PATIENT IF SHE NEEDED ANYTHING AND SHE SAID NO. PATIENT IS RESTING.
--- NOTE | 2019-03-14 19:30 | NUR ---
PATIENT IN BED WATCHING TV. ABD PAIN 4-5/10, BUT DOES NOT WISH FOR ANYTHING FOR PAIN AT THIS TIME.
--- NOTE | 2019-03-14 20:57 | NUR ---
PT CALLED BECAUSE IV WAS BEEPING. FLUSHED IV AND HUNG NEW IV FLUID BAG. WARM BLANKET IS IN PLACE AND SHE DENIES FURTHER NEEDS. CALL LIGHT IS CLOSE.
--- NOTE | 2019-03-14 22:00 | NUR ---
PATIENT RESTING QUIETLY, EYES CLOSED, IN BETWEEN INTERRUPTION FROM STAFF HAVING TO ENTER ROOM. PATIENT'S PAIN LEVEL IS THE SAME AND SHE STILL WANTS NOTHING FOR IT.
--- NOTE | 2019-03-15 00:05 | NUR ---
PATIENT RESTING QUIETLY LEFT SIDE, EYES CLOSED, RESPIRATONS REGULAR AND EVEN AT 16.
--- NOTE | 2019-03-15 02:07 | NUR ---
MEDICATED WITH DILAUDID 1MG IV C/O 04/01 ABD CRAMPING. NO OTHER REQUESTS, CALL LIGHT AND FLUIDS AT BEDSIDE
--- NOTE | 2019-03-15 04:00 | NUR ---
PATIENT RESTING QUIETLY, LEFT SIDE, EYES CLOSED, RESPIRATIONS REGULAR AT 16.
--- NOTE | 2019-03-15 06:16 | NUR ---
PATIENT HAS HAD 4-6/10 ABD PAIN ALL NIGHT, BUT HAS ONLY REQUESTED PAIN MEDICATION ONE TIME. PATIENT SLEPT WHEN, STAFF WAS NOT IN THE ROOM AT TIMES. HER TO SEE PATIENT NOW.
--- NOTE | 2019-03-15 07:34 | NUR ---
BEDSIDE REPORT RECIEVED FROM BRITTNEY HARVEY. PT HAD BEEN UP IN THE HALLS WALKING AND IS NOW RESTING IN BED. SHE DENIES ANY NEW PROBLEMS AT THIS TIME AND HER CALL DEXTER IS WITHIN REACH.
--- NOTE | 2019-03-15 09:19 | NUR ---
PT RESTING IN BED AND STATES HER PAIN IS CONTROLED AT AN ACCEPTABLE LEVEL. SHE DOES STATE SHE HAS NAUSEA AND WAS MEDICATED ORDERED, SEE EMAR. PT STATES SHE HAD TWO BOWEL MOVEMENTS TODAY. SHE STATES THEY WERE BOTH SMALL AND THE SECOND ONE WAS SOFT, THE FIRST WAS MORE FORMED SHE STATES.
--- NOTE | 2019-03-15 09:52 | NUR ---
SL PT FOR SHOWER.
--- NOTE | 2019-03-15 10:49 | NUR ---
PT RESTING IN BED ATTEMPTING TO NAP SHE STATES SHE HAS BEEN AWAKE SINCE ABOUT 0200. SHE STATES HER NAUSEA IS STILL PRESENT BUT "LOW GRADE" AND SHE DENIES THE NEED FOR ANY NEEDED AT THIS TIME. PT STATES SHE FEELS BETTER AFTER HAVING HAD A SHOWER THIS AM.
--- NOTE | 2019-03-15 10:56 | NUR ---
PATIENT TOOK A SHOWER THIS MORNING. PATIENT IS INDEPENDENT.
--- NOTE | 2019-03-15 11:26 | NUR ---
PT SLEEPING AT THIS TIME.
--- NOTE | 2019-03-15 12:58 | NUR ---
1245: PT RESTING IN BED WITH NO NEW PROBLEMS.
--- NOTE | 2019-03-15 13:17 | NUR ---
PT AMBULATING IN [place]-APPEARS TO ENJOY GETTING OUT OF RM.PT MENTIONED THAT SHE DIDN'T SLEEP AT ALL LAST NIGHT AND HOPES TO BE ABLE TO NAP SOME TODAY. WE TALKED ABOUT STRESS IN HER LIFE AND SHE ADMITTED THAT SHE KNOWS THAT IT HAS A NEGATIVE IMPACT 0N HER HEALTH. HER SON WANTS HER TO MOVE TO [place] WITH HIM. SHE ENJOYS HER JOB, BUT FEELS SHE CANT'T MAKE A MOVE LIKE THAT. PT SEEMS TO BE MORE POSITIVE AND UPBEAT TODAY, OR MAYBE HOPEFUL. ESPECIALLY IF SHE CAN FIND FOOD THAT WON'T IRRITATE THE DIVERTICULITIS AGAIN. GOOD VISIT, EXTENDED A BLESSING. WILL FOLLOW NEEDED
--- NOTE | 2019-03-15 13:33 | NUR ---
PT STATES HER PAIN IS A 5/10 AND THAT SHE HAS SOME NAUSEA, SEE EMAR.
--- NOTE | 2019-03-15 14:08 | NUR ---
PATIENT ON A LOW-FIBER DIET. MAY BE D/C'D TOMORROW. SHE SAID SHE DID RECEIVE A HANDOUT BUT WOULD LIKE MORE INFORMATION. I PROVIDED HER A HANDOUT ON FIBER-RESTRICTED DIET WHICH EXPLAINS FOODS RECOMMENDED AND FOODS TO AVOID. SHE ASKED ABOUT INFO FOR A HIGH-FIBER DIET SINCE SHE KNOWS SHE WILL EVENTUALLY NEED A HIGH-FIBER DIET. PRINTED OFF A HANDOUT WHICH INCLUDED A SAMPLE MENU. VERBALLY PROVIDED SOME TIPS ON HOW TO INCREASE FIBER GRADUALLY AFTER A FEW DAYS. SHE APPRECIATED THE INFORMATION. MY NAME AND OFFICE # PROVIDED IN CASE QUESTIONS ARISE IN THE FUTURE.
--- NOTE | 2019-03-15 15:22 | NUR ---
PT SLEEPING AT THIS TIME.
--- NOTE | 2019-03-15 16:00 | NUR ---
PATIENT SPILLED WATER ON HER DRAW SHEET, FLAT SHEET SO I REPLACED IT. WHILE SHE GOT UP TO SIT IN HER CHAIR TO VISIT HER COMPANY.
--- NOTE | 2019-03-15 17:53 | NUR ---
Pt resting in her bed visiting with family at this time.
--- NOTE | 2019-03-15 18:38 | NUR ---
PT AMBULATING IN THE HALLS. PT STEADY ON HER FEET.
--- NOTE | 2019-03-15 20:40 | NUR ---
PATIENT SITTING IN BED WATCHING TV. ABD PAIN 4-5/10, BUT PATIENT WANTS NO MEDS AT THIS TIME AND HAS NO OTHER NEEDS.
--- NOTE | 2019-03-15 22:44 | NUR ---
WES Nava completed VS and I&Os.
--- NOTE | 2019-03-16 00:44 | NUR ---
PATIENT RESTING ON HERLEFT SIDE, EYES CLOSED, RESPIRATIONS REGULAR AND EVEN.
--- NOTE | 2019-03-16 02:45 | NUR ---
PATIENT RESTING ON HER RIGHT SIDE, RESPIRATIONS REGULAR AND EVEN AT 18, EYES CLOSED.
--- NOTE | 2019-03-16 05:07 | NUR ---
PATIENT HAS HAS RESTED MOST OF THE NIGHT QUIETLY WITH EYES CLOSED AND HAS ASKED FOR NO PAIN MEDS UNTIL NOW. ABD PAIN 6 AND PATIENT 2 PILLS. SHE WAS GIVEN 2X2MG TABS OF DILAUDID. IV STILL WNL AND INFUSING. LUNGS CLEAR. BOWEL TONES ACTIVE. PATIENT BASICALLY INDEPENDENT.
--- NOTE | 2019-03-16 07:29 | NUR ---
BEDSIDE REPORT RECEIVED FROM BRITTNEY HARVEY. PT RESTING IN BED AND STATES SHE HAD A BETTER NIGHT AND SLEPT WELL. CALL DEXTER WITHIN REACH AND NO COMPLAINTS AT THIS TIME.
--- NOTE | 2019-03-16 07:36 | NUR ---
PT AMBULATING IN THE HALLS AT THIS TIME.
--- NOTE | 2019-03-16 08:54 | NUR ---
PT RESTING IN BED WITH NO COMPLAINTS AT THIS TIME.
--- NOTE | 2019-03-16 09:45 | NUR ---
PATIENT UP WALKING AROUND IN ROOM, IND. FRESH WATER GIVEN. CALL LIGHT IN REACH. NO FURTHER NEEDS AT THIS TIME.
[2019-03-16] MEDS ORDERED: LEVAQUIN500 MG PO (09:50)
[2019-03-16] MEDS ORDERED: FLAGYL500 MG PO (09:51)
--- NOTE | 2019-03-16 10:06 | NUR ---
PT DENIES ANY NEW PROBLEMS AND DC INSTRUCTIONS GIVEN TO THE PT WITH GOOD UNDERSTANDING STATED.
--- NOTE | 2019-03-17 09:23 | DS ---
[facility] [address] [place], [place] [address] Signed ADMISSION DATE: 03/10/2019 DISCHARGE DATE: 03/16/2019 FINAL DIAGNOSIS: Sigmoid diverticulitis. PROCEDURE: CT scan of abdomen and pelvis. HISTORY OF PRESENT ILLNESS: Oanh is a 58-year-old female, who has had trouble apparently with recurring diverticular disease over several years, she let this go about 6 days, she was hoping to get in to see her primary care provider. She ended up in the emergency room because of increasing pain. She had fairly significant diverticular disease with intramural fluid collection. I have been asked to admit her as a general surgeon on-call. HOSPITAL COURSE: Oanh was admitted as above, we kept her on cefepime and Flagyl throughout her hospital stay. Each day she has made little progress. At this point, we have her on a low-fiber diet and she has minimal pain to deep palpation in the left lower quadrant. She is able to perform her activities of daily living and is now reached discharge status. DISCHARGE PLANS AND MEDICATIONS: 1. Oanh is going to be discharged home with Levaquin 500 mg one tablet p.o. daily for seven additional days. 2. She will receive Flagyl 500 mg one tablet p.o. t.i.d. for seven additional days for a total of 14 days antibiotics. We have been through our discussion with diverticulitis now each and every day. She is well aware that she certainly is a candidate for surgery. In the meantime, we are going to keep her on a low-fiber diet and we will let her take a week off work. We will have her back in the office in about 7 to 10 days and we will assess her progress. We will have to review her last colonoscopy. She may need a repeat colonoscopy at this time prior to the surgery. She is certainly welcome to perform her activities of daily living including walking up and down stairs and showering and bathing as usual. She has expressed understanding and agrees above plan. Taylor Arias MD Electronically Signed By: TAYLOR ARIAS MD 03/17/19922 PATIENT NAME: OANH BOONE DISCHARGE SUMMARY DATE OF : 64 REPORT #: [id number] PHYSICIAN: TAYLOR ARIAS MD PCP: AARON GREGG PA-C REPORT IS CONFIDENTIAL AND NOT TO BE RELEASED WITHOUT AUTHORIZATION [facility] [address] [place], [place] [address] Signed ALB/MODL /[id number] cc: MD Aleena oJseph MD Copies: TAYLOR ARIAS MD ~ Electronically Signed By: TAYLOR ARIAS MD 03/17/19922 PATIENT NAME: OANH BOONE DISCHARGE SUMMARY DATE OF : 64 REPORT #: [id number] PHYSICIAN: TAYLOR ARIAS MD PCP: AARON GREGG PA-C REPORT IS CONFIDENTIAL AND NOT TO BE RELEASED WITHOUT AUTHORIZATION
== END 2019-03-16 11:00 | disposition home or self-care (01) | DRG 392 ==
LOC: ED 09:17 → MS 09:18
PROVIDERS: ADMIT Colon & Rectal Surgery
DX: K57.32 Diverticulitis of large intestine without perforation or abscess without bleeding (principal); B02.9 Zoster without complications; G47.00 Insomnia, unspecified; K21.9 Gastro-esophageal reflux disease without esophagitis; E66.9 Obesity, unspecified; Z79.899 Other long term (current) drug therapy; Z87.891 Personal history of nicotine dependence; Z88.5 Allergy status to narcotic agent; Z88.8 Allergy status to other drugs, medicaments and biological substances; Z68.36 Body mass index [BMI] 36.0-36.9, adult
CPT/HCPCS: 36415; 74177; 80048; 80053; 81001; 83690; 83735; 84100; 85025; 93005; 93010; 96368; 99285-25; C9113; J0692; J1170; J1644; J1885; J2405; J2550; J7030; J7060; J7120

== ENCOUNTER 2019-04-15 10:27 | Inpatient (IN) | payer OTHER ==
[~2019-04-15] VITALS: Ht 170.2 cm; Wt 108.4 kg
[~2019-04-15 10:27] MED LIST changes: +FLAGYL500 MG PO; +LEVAQUIN500 MG PO
--- NOTE | 2019-04-19 15:15 | NUR ---
04/19/19 1515 Melissa,Domenica 1501 PT ARRIVED TO PACU ON 8L VIA MASK, RESP EVEN AND UNLABORED. 1504 PT WAKES AND STARTS PULLING COVERS OFF AND STARTED TRYING TO GET OUR OF BED, PT ABLE TO SAY SHE NEEDS TO VOID. PT EDUCATION GIVEN ON HOLMAN. O2 MASK REMOVED. PT VERY DROWSY AND BACK TO SLEEP. SNORING NOTED. 1507 O2 DECREASED TO 92%, RN ENCOURAGES DEEP BREATHING. 1510 PT WAKES AND GRIMACES AND REPORTS "TUMMY HURTS." PT RATES PAIN 8/10, THEN BACK TO SLEEP. 1512 O2 DECREASED TO 90% AND NC PLACED AT 2L AND PT ENCOURAGED TO DEEP BREATHE.
--- NOTE | 2019-04-19 16:22 | NUR ---
1615: PT TO MED-SURG VIA BED TRANSFER FROM PACU. VSS AT THIS TIME. MIDLINE ABD INCISION DRESSING CDI WITH ICE IN PLACE. PT STATES HER PAIN IS AN 8/10 AND SHE WAS MEDICATED FOR PAIN JUST PRIOR TO LEAVING FROM PACU PER REPORT. PULSE OX PLACED ON THE PT AND HER SAT IS 100% ON 2L. SCD'S ON AND RUNNING. PT ORIENTED TO HER ROOM AND GIVEN AN IS AND INSTRUCTED IN IT'S USE.
--- NOTE | 2019-04-19 17:36 | NUR ---
PT'S ABD DRESSING REMAINS CDI. PT STATES HER PAIN IS A 7/10 AND WAS TREATED FOR PAIN. SEE EMAR.
--- NOTE | 2019-04-19 18:00 | NUR ---
PT WAS SLEEPING WHEN I ARRIVED TO HER ROOM SHE HEARD ME AND AWOKE. SHE STATES HER PAIN IS "BETTER" AND SHE NOW RATES IT AT A 5 WHICH SHE STATES IS ACCEPTABLE. SAT IS 99% ON 2L VIA NC.
--- NOTE | 2019-04-19 19:05 | NUR ---
SHIFT REPORT RECEIVED FROM DAYSNVKATE FRAGOSO AT BEDSIDE. PT AWAKE AND RESTING IN BED, IV FLUIDS INFUSING PER MD ORDERS. IV SITE WNL. PT REPORTS PAIN, WILL ADMINISTERE PAIN MEDICATIOND AFTER SHIFT CHANGE. PT AGREES TO PLAN. NO FURTHER NEEDS, CALL LIGHT IN REACH.
--- NOTE | 2019-04-19 19:53 | NUR ---
PT REPORTS 8/10 PAIN TO ABDOMEN, 0.5MG PRN DILAUDID ADMINISTERED. 8MG PRN ZOFRAN ALSO GIVEN FOR NAUSEA PER PT REQUEST. IV FLUIDS INFUSING, IV SITE WNL. NEW ICE PACK ALSO GIVEN, NO FURTHER NEEDS AT THIS TIME. CALL LIGHT IN REACH.
--- NOTE | 2019-04-19 21:12 | NUR ---
ASSESSMENT COMPLETE, SCHEDULED MEDICATIONS ADMINISTERED (SEE EMAR). VSS, PT ON 2LNC, CPOX IN PLACE. PT REPORTS 10/10 PAIN, 1MG PRN DILAUDID ADMINISTERED. IV FLUIDS INFUSING PER MD ORDERS, IV SITE WNL. ABDOMINAL INCISION COVERED, NO SHADOWING OR DRAINAGE NOTED. HOLMAN CATHETER IN PLACE, VOIDING QS YELOOW URINE AT THIS TIME. NO FURTHER NEEDS, CALL LIGHT IN REACH.
--- NOTE | 2019-04-19 22:18 | NUR ---
VITALS AND I&OS DONE AND CHARTED. BEDSIDE TABLE AND CALL LIGHT IN REACH. PT NEEDS NOTHING MORE AT THIS TIME.
--- NOTE | 2019-04-19 22:29 | NUR ---
PT RESTING IN BED AND IS AWAKE. PT DESCRIBES PAIN IS "TOLERABLE RIGHT NOW". PT DENIES NEEDS, CALL LIGHT IN REACH.
--- NOTE | 2019-04-20 00:45 | NUR ---
PT REPORTING 8/10 PAIN TO ABDOMEN. 1 MG PRN DILAUDID ADMINISTERED. PT TITRATED TO 1LNC, CPOX IN PLACE. PT MAINTAINING UPPER 90'S. HR 70. CALL LIGHT IN REACH.
--- NOTE | 2019-04-20 01:47 | NUR ---
VITALS AND I&OS DONE AND CHARTED. BEDSIDE TABLE AND CALL LIGHT IN REACH. PT NEEDS NOTHING MORE AT THIS TIME.
--- NOTE | 2019-04-20 02:21 | NUR ---
new bag of iv fluids hung per md orders, iv site wnl. pt awake and resting in bed, denies additional needs. call light in reach.
--- NOTE | 2019-04-20 02:23 | NUR ---
pt titrated to ra, o2 sat maintaining in upper 90's. will monitor.
--- NOTE | 2019-04-20 02:50 | NUR ---
PT REPORTING INCREASING 10/10 PAIN TO ABDOMEN AND BACK. 1MG PRN DILAUDID ADMINISTERED. ASSESSMENT COMPLETE, NO NEW CHANGES OR CONCERNS. ABDOMINAL INCISION COVERED, NO SHADOWING OR DRAINAGE NOTED. BOWEL TONES HYPOACTIVE. NO NAUSEA AT THIS TIME. CALL LIGHT IN REACH. SCD'S IN PLACE.
--- NOTE | 2019-04-20 04:49 | NUR ---
PT A/OX4, VSS. PT ON CPOX, TITRATED TO RA THIS SHIFT. PAIN BROUGHT TO TOLERABLE LEVEL WITH PRN DILAUDID. D5LR @100MLS/HR, IV SITE WNL. HOLMAN CATHETER TO BE DISCONTINUED THIS AM, VOIDING BORDERLINE. NO BM THIS SHIFT. PT NOT YET OUT OF BED, USES CALL LIGHT APPROPERAITELY. ABDOMINAL INCISION COVERED, DRY. NO DRAINAGE OR SHADOWING NOTED. ZOFRAN X1 GIVEN FOR NAUSEA.
--- NOTE | 2019-04-20 05:38 | NUR ---
PT UP 2PA OUT OF BED. PT TOLERATED AMBULATION WELL, REPORTED MINIMAL DIZZINESS. VSS. PT AMBULATED SBA FROM BED TO BATHROOM DOOR AND TO WINDOWN THEN BACK TO BED. PT MAINTAINED O2 SAT OF 93% WHILE AMBULATING, HIGHEST HR NOTED WAS 109. PT ALSO GIVEN 1MG PRN DILAUDID PRIOR TO AMBULATION FOR 10/10 PAIN. PT BACK IN BED, SCD'S IN PLACE. 150 MLS OUT FROM HOLMAN CATHETER. NO FURTHER NEEDS, CALL LIGHT IN REACH. IV FLUIDS INFUSING, IV SITE WNL.
--- NOTE | 2019-04-20 07:02 | NUR ---
DR ARIAS MADE AWARE OF PT'S TOTAL URINE OUTPUT FOR SHIFT. UO WAS 425MLS. TELEPHONE ORDER READ BACK FOR 1,000 MLS LACTATED RINGER BOLUS TO INFUSE OVER 5 HRS AT A RATE OF 200MLS/HR.
--- NOTE | 2019-04-20 07:09 | NUR ---
REPORT RECEIVED FROM WES LE. PT RESTING IN BED. PT REPORTS 9/10 ABDOMINAL PAIN. SEE MAR FOR MEDICATION GIVEN. FLUID BOLUS STARTED FOR INADIQUATE URINE OUTPUT. PT DENIES NAUSEA. DRESSING C/D/I AT THIS TIME, GAUZE YET TO BE REMOVED. HOLMAN CATHETER REMAINS IN PLACE AND DRAINING TO GRAVITY AT THIS TIME. O2 AT 95% ON ROOM AIR, HR = 82. BED RAILS UP. CALL LIGHT WITHIN REACH. NO ADDITIONAL REQUESTS OR COMPLAINTS AT THIS TIME.
--- NOTE | 2019-04-20 08:22 | OR ---
[facility] [address] [place], [place] [address] Signed DATE OF OPERATION: 04/19/2019 SURGEON: Taylor Arias MD PREOPERATIVE DIAGNOSIS: Recurrent/persistent sigmoid diverticulitis. POSTOPERATIVE DIAGNOSIS: Recurrent/persistent sigmoid diverticulitis. PROCEDURE PERFORMED: Open sigmoidectomy with Moreira side-to-end coloproctostomy. INPUT AND OUTPUT: In was 2.2 L of crystalloid over 2.5 hours, out was 225 mL of urine and 25 mL of blood. FINDINGS: Oanh had a persistent area of induration and inflammatory changes in her mid to proximal sigmoid colon, at least the size of a tennis ball if not a little larger. INDICATIONS: Oanh is a 58-year-old female at 236 pounds. She said for the last 4 years she has been having trouble with recurrent and/or persistent diverticulitis in her mid to proximal sigmoid colon. She has had it at least twice a month that flares. She can normally go on liquid diet for a few days and that will settle down. She has had to take multiple courses of antibiotics. She was unable to get to her primary care provider for over a week and she ended up in the emergency room. I admitted her as a general surgeon on-call for IV antibiotics. She has been about a week in the hospital and finally recovered. She had had a colonoscopy in 2015 and it was unremarkable other than diverticular disease. I had given Oanh a [employer] brochure on diverticular disease. We looked at that together and talked about each day in the hospital as well as in the office. I had explained to Oanh she certainly was a candidate for a low anterior resection to remove that chronically inflamed segment of diverticulitis. We had reviewed the nature of that incision along with the surgery. She understands expected intraop and postop course. We did review the risks including, but not limited to bleeding, infection, scarring, change in contour of the skin, damage to the ureters, damage to the bowel, anastomotic leak, recurrent diverticular disease as well as incisional hernias and other unforeseen comorbidities. She had expressed understanding and wished to proceed. Electronically Signed By: TAYLOR ARIAS MD 04/20/19 0822 PATIENT NAME: OANH BOONE OPERATIVE REPORT DATE OF : 64 REPORT #: [id number] PHYSICIAN: TAYLOR ARIAS MD PCP: AARON GREGG PA-C REPORT IS CONFIDENTIAL AND NOT TO BE RELEASED WITHOUT AUTHORIZATION [address] [address] Signed DESCRIPTION OF PROCEDURE: I had met with Oanh, her daughter, and her granddaughter in our preop area. After answering the questions, Oanh was taken into the operating room and placed in supine position under general endotracheal tube anesthesia. She had bilateral TAP blocks placed by our anesthesia provider. A Martínez catheter was inserted with return of clear yellow urine without difficulty. She was given preoperative antibiotics along with subcutaneous heparin. SCDs were utilized. She was then prepped and draped in the usual sterile fashion. We made a standard periumbilical midline incision and carried that in the abdomen with the help of the cautery without difficulty. She has had a previous full hysterectomy. We had to take down a few adhesions of the omentum and we found that the mid sigmoid colon was adherent to the lateral pelvic sidewall. We opened the white line of Toldt. We brought that down over the brim of the left side of the pelvis. We opened it up and we could easily visualize the peristalsing ureter as it traveled down into the pelvis. We carefully the sigmoid colon from the lateral pelvic sidewall and we had to take that all the way down to the bottom of the pelvis in order to mobilize the rectum up or cephalad. After this, we divided the proximal colon with the help of linear ANDREIA 75 mm stapler. The mesocolon was taken down between Pean clamps and 0 Vicryl ties down to the top of the rectum. The top of the rectum was divided with the TA-60 stapler. The proximal colon and the rectum were able to come together without any tension. We then performed a standard side-to-end colorectal anastomosis in layers with 3-0 Vicryl and 3-0 silk stitches. The anastomosis was palpably patent. We then irrigated out the entire pelvis until completely clean. She does have her appendix in place. After this, the small bowel was returned to its position along with the omentum over top of that. We then closed the midline fascia with interrupted [id number] #1 PDS sutures. The wound was irrigated and suctioned out until clear. We brought the dermis together with interrupted 3-0 subcuticular Monocryl sutures. The skin edges were reapproximated with kina. Dry gauze and tape were then applied. Martínez catheter was left in place. She was awakened from anesthesia, extubated in the OR, and taken to recovery room in stable condition. Taylor Arias MD ALB/MODL /[id number] cc: Taylor Arias MD Electronically Signed By: TAYLOR ARIAS MD 04/20/19 0822 PATIENT NAME: OANH BOONE OPERATIVE REPORT DATE OF : 64 REPORT #: [id number] PHYSICIAN: TAYLOR ARIAS MD PCP: AARON GREGG PA-C REPORT IS CONFIDENTIAL AND NOT TO BE RELEASED WITHOUT AUTHORIZATION [address] [address] Signed IMTIAZ Funez Copies: TAYLOR ARIAS MD ~ Electronically Signed By: TAYLOR ARIAS MD 04/20/19 0822 PATIENT NAME: OANH BOONE OPERATIVE REPORT DATE OF : 64 REPORT #: [id number] PHYSICIAN: TAYLOR ARIAS MD PCP: AARON GREGG PA-C REPORT IS CONFIDENTIAL AND NOT TO BE RELEASED WITHOUT AUTHORIZATION
--- NOTE | 2019-04-20 08:57 | NUR ---
MORNING ASSESSMENT DUE. PT RESTING IN BED. PT REPORTS 8 PAIN. SEE MAR FOR MEDICATION GIVEN. MD TO BEDSIDE FOR ROUNDS. DRESSING REMOVED. INCISION C/D/I WITH EDGS APROXIMATED. PT DEMONSTRATES USE OF I.S. REACHING 1500ML. CPOX IN [place] WITH O2 SATURATION AT 94%. PT DENIES NASUEA. 2PA PIVOT TRANSFER UP TO CHAIR. PT PLAYING ON PHONE AND WATCHING TV. NO ADDITIONAL REQUESTS OR COMPLAINTS AT THIS TIME. CALL LIGHT WITHIN REACH.
--- NOTE | 2019-04-20 09:45 | NUR ---
NUTRITION WORKER ORDERED BY . HERMINIA CONSULTED. PHARMACISTS STATES NUTRITION WORKER IS NO LONGER BEST PRACTICE. MD CONSULTED. MD CANCELS NUTRITION WORKER ORDER, NEW ORDERS PLACED. THIS RN TO BEDSIDE. PT RATES PAIN AT 9/10 THAT "COMES AND GOES, LIKE CRAMPING." SEE MAR FOR MEDICATION GIVEN. NO ADDITIONAL REQUESTS OR COMPLAINTS AT THIS TIME. PT WORKING ON PHONE. CALL LIGHT WITHIN REACH.
--- NOTE | 2019-04-20 09:56 | NUR ---
PATIENT SITTING UP IN CHAIR. RN IN ROOM. VITAL SIGNS AND I&O DONE. LOW OUTPUT. RN NOTIFIED. CALL LIGHT WITHIN REACH. NO OTHER NEEDS AT THIS TIME
--- NOTE | 2019-04-20 10:45 | NUR ---
THIS RN TO ROOM TO CHECK ON PT. PT REPORTS 7/10 CRAMPING PAIN IN ABDOMEN. SEE MAR FOR MEDICATION GIVEN. PT TALKING ON PHONE WITH DAUGHTER. NO ADDITIONAL REQUESTS OR COMPLAINTS. CALL LIGHT WITHIN REACH.
--- NOTE | 2019-04-20 11:55 | NUR ---
NOON ASSESSMENT DUE. PT REPORTS 6/10 PAIN AND REQUESTS ADDITIONAL PAIN MEDICATION. SEE MAR FOR MEDICATION GIVEN. ASSESSMENT DONE. WOUND EDGES APROXIMATED AND C/D/I. PT DEMONSTRATES USE OF I.S. AND REACHES 2250ML. PT REPORTS PULSE OX IS "BEEPING WHENEVER I SLEEP." PT OBSERVED AND DROPS FROM 92% TO 84% ON ROOM AIR WHEN SLEEPING. PT PLACED ON 1L O2 BY NC WHILE SLEEPING. PT VISITING ON PHONE. CALL LIGHT WITHIN REACH. NO ADDITIONAL REQUESTS OR COMPLAINTS AT THIS TIME.
--- NOTE | 2019-04-20 12:50 | NUR ---
THIS RN TO ROOM TO CHECK ON PT. O2 AT 95% ON 2L BY NC. O2 SATURATION CONTINUES TO DROP TO 88% WHEN PT IS ALSEEP. RT CONSULTED AND WILL ASSESS PT. OPIOD PAIN MEDICATION HELD AT THIS TIME. PT REPORTS 5/10 PAIN AND STATES "IT FEELS PRETTY GOOD RIGHT NOW." PT DENIES NEED FOR OTHER PAIN MEDICAITON AT THIS TIME. 1PA BACK TO BED. SCD'S IN PLACE. NO ADDITIONAL REQUESTS OR COMPLAINTS AT THIS TIME. CALL LIGHT WITHIN REACH.
--- NOTE | 2019-04-20 13:18 | NUR ---
PATIENT RESTING IN BED. VITAL SIGNS AND I&O DONE. LOW OUTPUT. RN NOTIFIED. CALL LIGHT WITHIN REACH. NO OTHER NEEDS AT THIS TIME
--- NOTE | 2019-04-20 13:46 | NUR ---
PT CALL LIGHT ON. PT REPORTS 6/10 PAIN. SEE MAR FOR MEDICATION GIVEN. PT TALKING ON PHONE. O2 AT 99% ON 2L WHILE AWAKE AND 92% WHEN ATTEMPTING TO SLEEP. PT REPORTS THE PULSE OX ALARMS WHEN SHE TRIES TO SLEEP. RT PLANS TO VISIT WITH PT. NO ADDITIONAL REQUESTS OR COMPLAINTS. BED RAILS UP. CALL LIGHT WITHIN REACH.
--- NOTE | 2019-04-20 14:08 | NUR ---
Medications reconciled from discharge orders from last month's admission
--- NOTE | 2019-04-20 15:13 | NUR ---
THIS RN TO ROOM TO CHECK ON PT. PT WATCHING TV AND TALKING ON PHONE. PT REPORTS 7/10 PAIN AND WOULD LIKE ADDITIONAL PAIN MEDICATION. SEE MAR FOR MEDICATION GIVEN. FRESH ICE CHIPS PROVIDED. PT DENIES ADDITIONAL REQUESTS OR COMPLAINTS. NO NEW BLISTERS OR OTHER SIGNS OF ALLERGIC REACTIONS. BED RAILS UP. CALL LIGHT WITHIN REACH.
--- NOTE | 2019-04-20 16:02 | NUR ---
MD CALLED REGARDING LOW UO, CLOT IN URINE, AND O2 SATURATION LEVELS. NEW ORDERS GIVEN AND PLACED INTO ELECTRONIC RECORD. CHARGE NURSE UPDATED. RESPIRATORY UPDATED.
--- NOTE | 2019-04-20 16:35 | NUR ---
AFTERNOON ASSESSMENT DUE. PT REPORTS 04/01 PAIN. SEE MAR FOR MEDICATION GIVEN. PT REQUESTS TO GET UP TO AMBULATE. PT STEADY ON FEET WITH SBA. PT UP TO AMBULATE X2 LAPS IN [place]. ASSESSMENT DONE. UO CONTINUES TO BE INADEQUATE. FLUID RATE INCREASED PER MD ORDER. HOLMAN FLUSHED WITH 30ML NS, HOLMAN FUNCTIONING WNL. PT UP TO CHAIR. PT SMILING AND STATES SHE IS COMFORTABLE. PT ON ROOM AIR WHILE AWAKE BUT CONTINUES TO NEED O2 WHEN ASLEEP. NO ADDITIONAL REQUESTS OR COMPLAINTS AT THIS TIME. PT DEMONSTRATES USE OF I.S. REACHING 2500. PT WORKING ON PHONE. CALL LIGHT WITHIN REACH.
--- NOTE | 2019-04-20 17:29 | NUR ---
PATIENT SITTING UP IN CHAIR. VITAL SIGNS AND I&O DONE. CALL LIGHT WITHIN REACH. NO OTHER NEEDS AT THIS TIME
--- NOTE | 2019-04-20 17:52 | NUR ---
THIS RN TO ROOM TO CHECK ON PT. PT REPORTS 5/10 PAIN AND DENIES NEED FOR PAIN MEDICAITON AT THIS TIME. PT REPORTS THE PULSE OX IS "BEEPING WHENEVER I TRY TO SLEEP." RT CALLED TO SET UP CPAP. PT DENIES ADDITIONAL REQUETS OR COMPALINTS AT THIS TIME. CALL LIGHT WITHIN REACH.
--- NOTE | 2019-04-20 18:03 | NUR ---
PT POST OP DAY 1 AFTER SIGMOID COLECTOMY. DRESSING REMOVED THIS AM, INCISION C/D/I WITH EDGES APROXIMATED. PT UP TO CHAIR AND TO AMBULATE IN [place]AV[place] WITH SBA. PAIN CONTROLED THIS SHIFT WITH PRN DILAUDID, TYLENOL, AND TORDOL. HOLMAN CATHETER REMAINS IN PLACE, QUANTITY INSUFFICENTMD AWARE. BOLUS GIVEN. PT CONTINUES TO BE NPO WITH ICE CHIPS AND HARD CANDY, TOLERATING WELL, DENIES NASUEA. PT NOT TOLERTING RA WHEN SLEEPING, 2L O2 BY NC OR CPAP USED IF NEEDED. CPAP AT BEDSIDE. PT USES CALL LIGHT APPROPRIATLY.
--- NOTE | 2019-04-20 18:37 | NUR ---
PT CALL LIGHT ON. PT REQUESTS PAIN MEDICATION FOR 05/01 PAIN. SEE MAR FOR MEDICATION GIVEN. SBA BACK TO BED. PULSE OX READS 99% ON 1L WHILE AWAKE. PT DEMONSTRATES USE OF I.S. REACHING 2250. NO ADDITIONAL REQUESTS OR COMPLAINTS AT THIS TIME. CALL LIGHT WITHIN REACH.
--- NOTE | 2019-04-20 19:23 | NUR ---
RECEIVED REPORT FROM WES ALLEN. pt REPORTED PAIN IS "OKAY". NO REQUESTS AT THIS TIME. WHITEBOARD UPDATED. EDUCATION ON DIET. CALL LIGHT WITHIN REACH.
--- NOTE | 2019-04-20 21:00 | NUR ---
pt CALLED FOR PAIN MEDICATIONS. DISCUSSED PLAN FOR MEDICATION DURING NIGHT. pt REPORTED PAIN IN HAND WHEN FLUSHING IV. SWELLING NOTED. IVF STOPPED. ATTEMPTED NEW IV, ALERTED CHARGE NURSE TO ATTEMPT. ASSESSMENT DONE. INCISION WELL APPROXIMATED. NO DRAINAGE NOTED. MEDICATIONS GIVEN (SEE MAR). RT IN ROOM TO SETUP CPAP. CALL LIGHT WITHIN REACH.
--- NOTE | 2019-04-20 22:12 | NUR ---
ATTEMPTS TO START IV SITE IN RIGHT UPPER ARM WAS SUCESSFUL, HOWEVER SITE IS POSITIONAL AND WILL NOT INFUSE WITH IV PUMP. DISCUSSED WITH QUALITY ANALYST RN FOR ADDITIONAL ASSISTANCE STARTING IV SITE. PATIENT REPORTS 9/10 PAIN IN ABD, PRN PAIN MEDS PROVIDED PER ORDER.
--- NOTE | 2019-04-20 23:24 | NUR ---
PAIN 8/10, PRN MED GIVEN (SEE MAR). RT IN ROOM TO START CPAP.
--- NOTE | 2019-04-21 00:14 | NUR ---
ROUNDED ON pt. ON CPAP, O2 91% ON 2L. EYES CLOSED, RESPIRATIONS REGULAR. CALL LIGHT WITHIN REACH.
--- NOTE | 2019-04-21 02:20 | NUR ---
pt RESTING. PER AGREEMENT MADE DURING ASSESSMENT, TORADOL GIVEN TO KEEP PAIN UNDER CONTROL (SEE MAR). pt RESTING WITH EYES CLOSED, CPAP ON SAT 95%. CALL LIGHT WITHIN REACH.
--- NOTE | 2019-04-21 04:07 | NUR ---
ROUNDED ON pt. RESTING WITH EYES CLOSED, RESPIRATIONS REGULAR, RATE = 18. CPAP ON SAT 95%. CALL LIGHT WITHIN REACH.
--- NOTE | 2019-04-21 04:57 | NUR ---
pt RESTED MOST OF SHIFT. PRN PAIN MEDS GIVEN FREQUENTLY WHILE AWAKE. pt TOLERATED CPAP WITH 2L O2. SBA. HOLMAN. NPO WITH ICE CHIPS AND HARD CANDY. DENIED NAUSEA. INCISION CDI EDGES APPROXIMATED OPEN TO AIR. USES CALL LIGHT APPROPRIATLEY.
--- NOTE | 2019-04-21 08:12 | NUR ---
Acetaminophen IV q 6 hrs was unintentionally interrupted as order defaulted to 3 dose limit. This pharmacist discovered issue and reinstated order with no discontinuation time.
--- NOTE | 2019-04-21 09:00 | NUR ---
PT AWAKE IN BED. RATING PAIN 5/10 AT THIS TIME. DENIES NAUSEA. ALERT AND ORIENTED. IV INFUSING WNL. MIDLINE INCISION OPEN TO AIR, WELL APPROXIMATED, JESSICA WNL. NO DRAINAGE NOTED. SCD'S IN PLACE. CALL LIGHT WITHIN REACH.
--- NOTE | 2019-04-21 10:40 | NUR ---
PT SHOWERED INDEPENDENTLY. AMB HALLWAY AFTERWARDS, YARELI WELL. PT BACK TO BED AT THIS TIME. MEDICATED WITH IV DILAUDID FOR 7/10 ABD PAIN. DENIES NAUSEA. GIVEN ICE CHIPS PER REQUEST. MASOUD AT BEDSIDE VISITING. CALL LIGHT WITHIN REACH.
--- NOTE | 2019-04-21 13:12 | NUR ---
slater catheter removed at this time 9ml sterile water removed from bulb pt tolerated well. 400 ml urine in slater bag at d/c.
--- NOTE | 2019-04-21 14:42 | NUR ---
PT SITTING UP IN BED AWAKE, LAUGHING AND VISITING WITH DAUGHTER. RATED ABD PAIN 8/10. SCHEDULED IV TYLENOL RUNNING AT THIS TIME. CALL LIGHT WITHIN REACH.
--- NOTE | 2019-04-21 15:00 | NUR ---
MANDA PASTRANA DC'Maria BY FERNANDO CHARGE NURSE.
--- NOTE | 2019-04-21 17:00 | NUR ---
PT REQUESTED PAIN MEDICATION. MEDICATED WITH 1MG IV DILAUDID. PT SITTING UP IN BED VISITING AND LAUGHING. REPORTS "A LOT OF PAIN" WHILE MOVING AND GETTING UP TO RESTROOM. CALL LIGHT WITHIN REACH.
--- NOTE | 2019-04-21 18:05 | NUR ---
PT TERELL RIOS INDEPENDENTLY, YARELI WELL.
--- NOTE | 2019-04-21 19:45 | NUR ---
HELPED PT TO THE BATHROOM AND BACK TO BED. BEDSIDE TABLE AND CALL LIGHTIN REACH. PT NEEDS NOTHING MORE AT THIS TIME.
--- NOTE | 2019-04-21 19:46 | NUR ---
BEDSIDE REPORT RECEIVED FROM WES CORTEZ. PT RESTING IN BED, RATES PAIN 8/10 IN ABDOMEN. IV SITES INFILTRATED AND D/C'D WNL. WES SILVERMAN IN ROOM TO RESTART IV FOR PRN PAIN MEDICATION ADMINISTRATION. PT UP TO RESTROOM AT THIS TIME INDEPENDENTLY.
--- NOTE | 2019-04-21 20:53 | NUR ---
PT ASSESSMENT COMPLETE. NEW IV SITE IN RIGHT HAND IVF INFUSING WNL ORDERED. PRN AND SCHEDULED PAIN MEDICATION ADMINISTERED FOR 9/10 PAIN IN ABDOMEN. BOWEL TONES HYPOACTIVE. PT DENIES FLATUS. INCISION CDI WITH JESSICA, WELL APPROXIMATED. ABDOMEN SOFT. VSS. SCDS AND CONT. PULSE OX ON. RT IN ROOM. CALL LIGHT IN REACH. NEW ICE PACK TO ABDOMEN.
--- NOTE | 2019-04-21 21:39 | NUR ---
CALL LIGHT ANSWERED. PT ASSISTED OUT OF BED, ABMULATING HALLWAY INDEPENDENTLY. IVF INFUSING WNL.
--- NOTE | 2019-04-22 00:16 | NUR ---
CHECKED ON PT. APPEARS TO BE SLEEPING, EYES CLOSED, BREATHING NON-LABORED. LIGHTS OFF IN ROOM. SCDS ON. CONT. PULSE OX WNL.
--- NOTE | 2019-04-22 01:38 | NUR ---
CALL LIGHT ANSWERED, SBA TO RESTROOM FOR 350 ML VOID AND BACK TO BED. DISTAL OCCLUSION AT IV SITE, IV PULLED ACCIDENTLY BY PT, NOT PATENT. CANS VACUUM TESTER RN NOTIFIED, TO START IV. IV D/C'D WNL. PT RATES PAIN 6/10 IN ABDOMEN. CALL LIGHT IN REACH.
--- NOTE | 2019-04-22 02:08 | NUR ---
NEW IV STARTED LEFT HAND BY [employer] REPRES[employer]IVE[employer]ES JETER. IVF INFUSING WNL. PRN AND SCHEDULED PAIN MEDICATION ADMINISTERED FOR 6/10 ABDOMINAL CRAMPING, ABD TENDER THROUGHOUT, BOWEL TONES HYPOACTIVE. INCISION CLEAN DRY AND INTACT WITH JESSICA. ASSESSMENT COMPLETE. PT DENIES NAUSEA. CALL LIGHT IN REACH, LIGHTS OFF IN ROOM. SCDS ON.
--- NOTE | 2019-04-22 03:51 | NUR ---
PT AMBULATING IN HALLWAY INDEPENDENTLY. GAIT STEADY. IVF INFUSING WNL ORDERED.
--- NOTE | 2019-04-22 04:16 | NUR ---
CALL LIGHT ANSWERED. PT BACK IN BED AFTER AMBULATING, SCDS ON. NEW BAG IVF INFUSING WNL. PRN PAIN MEDICATION AND ICE PACK PROVIDED FOR 5-6/10 PAIN IN ABDOMEN. PT STATES "ITS REALLY NOT BAD". ALLOTTED ICE PROVIDED PER REQUEST. CALL LIGHT IN REACH. LIGHTS OFF IN ROOM.
--- NOTE | 2019-04-22 05:45 | NUR ---
PT UP AMBULATING IN HALLWAY MULTIPLE LAPS THIS SHIFT. PAIN WELL CONTROLLED WITH PRN DILAUDID, TORADOL IV, SCHEDULED IV TYLENOL. NO C/O NAUSEA. ABDOMINAL INCISION CDI WITH JESSICA. BOWEL TONES HYPOACTIVE, ABD SOFT, TENDER W PALPATION. PT INDEPENDENT IN ROOM. SCDS ON WHILE IN BED. THREE IV SITES INFILTRATED THIS SHIFT, NEW SITES PLACED WNL. IVF INFUSING THROUGHOUT SHIFT ORDERED. CONT. PULSE OX IN PLACE, PT ON ROOM AIR FOR MOST OF SHIFT, SPO2 WNL.
--- NOTE | 2019-04-22 06:25 | NUR ---
IN PT ROOM FOR VS, PT AWAKE RESTING IN BED. VSS. INDEPENDENT TO RESTROOM AND BACK TO BED. PT RATES PAIN 4-5/10, DENIES NEED FOR PRN PAIN MEDICATION. IVF INFUSING WNL ORDERED. SPO2 WNL ON RA. CALL LIGHT IN REACH. SCDS ON.
--- NOTE | 2019-04-22 08:07 | NUR ---
PT SITTING UP IN BED WATCHING TV. RATES ABD PAIN 04/01. MEDICATED WITH 8MG PO DILAUDID. DENIES NAUSEA. EATING FULL LIQUID BREAKFAST, YARELI WELL SO FAR. ALERT AND ORIENTED. IV TO LEFT HAND INFUSING WNL. PT SATTING 98% ON RA. INCISION TO MIDLINE ABD WELL APROXIMATED, NO REDNESS OR INFLAMMATION NOTED, JESSICA WNL. CALL LIGHT WITHIN REACH.
--- NOTE | 2019-04-22 10:03 | NUR ---
PT SHOWERED AND AMBULATED IN HALLWAY INDEPENDENTLY. LINENS CHANGED AND PT BACK IN BED RESTING SAFELY WITH CALL LIGHT IN REACH
--- NOTE | 2019-04-22 10:57 | NUR ---
IV FLUSHED AND IVF RESTARTED AFTER PT SHOWERING INDEPENDENTLY. PT AMB HALLWAY AFTER SHOWER. NOW REPORTING 8/10 PAIN. MEDICATED WITH PRN TYLENOL UNTIL DILUADID AVAILABLE. SITTING IN BED WATCHING TV. CALL LIGHT WITHIN REACH.
--- NOTE | 2019-04-22 13:17 | NUR ---
PT TERELL RIOS INDEPENDENTLY, YARELI WELL.
--- NOTE | 2019-04-22 14:00 | NUR ---
PT IS RESTING IN BED SAFELY WITH CALL LIGHT IN REACH, PT ASKED FOR MORE ICE WATER
--- NOTE | 2019-04-22 14:24 | NUR ---
PT RESTING IN BED, APPEARS TO BE ASLEEP. EYES CLOSED, RESP EVEN AN UNLABORED.
--- NOTE | 2019-04-22 15:19 | NUR ---
PT TERELL RIOS INDEPENDENTLY, YARELI WELL.
--- NOTE | 2019-04-22 17:28 | NUR ---
PT SITTING UP IN BED EATING DINNER, YARELI WELL. MEDICATED WITH 2TABS DILAUDID FOR 8/10 PAIN. IV INFUSING WNL. FAMILY AT BEDSIDE. CALL LIGHT WITHIN REACH.
--- NOTE | 2019-04-22 19:30 | NUR ---
BEDSIDE REPORT RECEIVED FROM WES CORTEZ. PT RESTING IN BED, C/O NAUSEA AND 9/5 PAIN IN ABDOMEN. RESTING IN BED. PRN NAUSEA AND PAIN MEDICATION ADMINISTERED. SCDS ON. PT STATES "I JUST FEEL CRUMMY". PO FLUIDS AT BEDSIDE. IVF INFUSING WNL. CALL LIGHT IN REACH.
--- NOTE | 2019-04-22 22:03 | NUR ---
PT ASSESSMENT COMPLETE. PT RATES PAIN 9/10 IN ABDOMEN. ABDOMEN SOFT, TENDER IN UPPER ABDOMEN W PALPATION. INCISION CDI, WELL APPROXIMATED WITH JESSICA. BOWEL TONES ACTIVE IN LLQ, LUQ, HYPOACTIVE RIGHT ABDOMINAL QUADRANTS. PT DENIES NAUSEA. PRN PAIN MEDICATION ADMINISTERED, ICE PACK IN PLACE. URINE HAT EMPTIED. VSS. CALL LIGHT IN REACH. LIGHTS OFF IN ROOM.
--- NOTE | 2019-04-23 00:39 | NUR ---
CHECKED ON PT. APPEARS TO BE SLEEPING, EYES CLOSED, SNORING. VISIBLE CHEST RISE EQUAL BILATERALLY. SPO2 WNL ON RA, CONT. PULSE OX IN PLACE. LIGHTS OFF IN ROOM. IVF INFUSING ORDERED.
--- NOTE | 2019-04-23 02:19 | NUR ---
CALL LIGHT ANSWERED. ICE PACK AND PRN PAIN MEDICATION ADMINISTERED FOR 6-7/10 PAIN IN ABDOMEN. ASSESSMENT COMPLETE. BOWEL TONES ACTIVE X 4, ABD SOFT, TENDER IN UPPER ABDOMEN W PALPATION. PT DENIES NAUSEA. REPORTS POSITIVE FLATUS. CALL LIGHT IN REACH. NO ADDITIONAL REQUESTS. IVF INFUSING WNL.
--- NOTE | 2019-04-23 05:27 | NUR ---
PT AMBULATING IN HALLWAY INDEPENDENTLY. TOLERATING FULL LIQUID DIET. POSITIVE FLATUS. BOWEL TONES PRESENT, ABD SOFT, TENDER. INCISION CDI AT MIDLINE, WELL APPROXIMATED WITH JESSICA. IVF INFUSING WNL. QS URINE OUTPUT. PAIN WELL CONTROLLED WITH PRN PO DILAUDID.
--- NOTE | 2019-04-23 05:57 | NUR ---
PT AWAKE, DROWSY RESTING IN BED. VSS. PT RATES PAIN 7/10 IN ABDOMEN. PRN PAIN MEDICATIONS ADMINISTERED. IVF INFUSING WNL ORDERED. PT DENIES NAUSEA. ICE PACK FOR ABDOMEN PROVIDED, FRESH ICE WATER. CALL LIGHT IN REACH.
--- NOTE | 2019-04-23 07:06 | NUR ---
REPORT RECEIVED FROM WES CHAO. PT RESTING IN BED. PULSE OX READS 96% ON ROOM AIR. HR = 76. PT REPORTS 5/10 PAIN THAT IS TOLERABLE AT THIS TIME. MD TO BEDSIDE FOR ROUNDS. NEW ORDERS PLACED. PT STATES SHE HAS NO REQUESTS OR COMPLIANTS AT THIS TIME AND COMPLIMENTS THE STAFF ON THEIR "EXCELLENT CARE." BED RAILS UP. CALL LIGHT WITHIN REACH.
--- NOTE | 2019-04-23 08:29 | NUR ---
MORNING ASSESSMENT AND MEDICATION DUE. PT BACK FROM 10 LAP WALK AROUND UNIT. PT UP ON EDGE OF BED FOR BREAKFAST. PT REPORTS 6/10 PAIN THAT "IS TOLERABLE" AT THIS TIME. PLUSE OX DC'D PER MD VERBAL ORDER. CMS INTACT. PT REPORTS "FEELING PUFFY" TODAY. MD CONSULTED, IV FLUIDS DECREASED TO 30ML/HR PER MD ORDER. PLAN MADE FOR SHOWER TODAY. MEDICATIONS GIVEN. INCISION C/D/I, EDGES APROXIMATED. NO ADDITIONAL REQUESTS OR COMPLAINTS AT THIS TIME. CALL LIGHT WITHIN REACH.
--- NOTE | 2019-04-23 10:06 | NUR ---
THIS RN TO ROOM TO CHECK ON PT. PT REPORTS 05/01 PAIN. SEE MAR FOR MEDICATION GIVEN. VITALS TAKEN. I/O RECORDED. PT REPORTS NO ADDITIONAL REQUESTS OR CONCERNS AT THIS TIME. WATER REFILLED. CALL LIGHT WITHIN REACH. PT STATES SHE WAS UP TO WALK ANOTHER 8 LAPS IN [place], INDEPENDANT AND STEADY ON FEET.
--- NOTE | 2019-04-23 11:08 | NUR ---
PT UP AND AMBULATING IN [place], 6 LAPS DONE. PT REPORTS 5/10 PAIN THAT IS "BETTER" AFTER PAIN MEDICATION. PT BACK TO ROOM. NO ADDITIONAL REQUESTS OR COMPLAINTS AT THIS TIME. CALL LIGHT WITHIN REACH.
--- NOTE | 2019-04-23 13:06 | NUR ---
NEW ORDER FOR PHYSICAL THERAPY EVALUATION. PATIENT VERBALIZED CONCERNS OF BEING ABLE TO NAVIGATE STAIRS IN DRIVEWAY THAT LEAD INTO HOUSE. PATIENT REPORTED FRIEND WAS GOING TO ATTEMPT INSTALLING RAILING ON THE STEPS TO DECREASE SAFETY CONCERNS. NO OTHER NEEDS OR CONCERNS AT THIS TIME.
--- NOTE | 2019-04-23 13:24 | NUR ---
AFTERNOON ASSESSMENT DUE. PT RESTING IN BED. PT UP TO AMBULATE FREQUENTLY, 25 LAPS DONE SO FAR THIS SHIFT. PT FINISHED WITH SOFT FOOD LUNCH. PT REPORTS SOME MILD NAUSEA. PT STATES SHE CAN WAIT FOR MEDICATION. PT ENCOURAGED TO TRY SOME ZOFRAN, AGREES TO MEDICATION. SEE MAR. PT REPORTS 7/10 CRAMPING PAIN THAT COMES AND GOES. SEE MAR FOR MEDICATION GIVEN. BOWEL TONES HEARD PT CONTINUES TO REPORT PASSING GAS. PT DEMONSTRATES USE OF I.S. REACHING 2250ML. ICE PACK REFILLED. WARM BLANKETS PROVIDED. NO ADDITIONAL REQUESTS OR COMPLAINTS AT THIS TIME. CALL LIGHT WITHIN REACH.
--- NOTE | 2019-04-23 14:30 | NUR ---
PT HAS HAD A BUSY DAY, REQUESTED I COME BACK LATER-SHE WOULD LIKE TO NAP. WILL HONOR PT'S WISHES. WILL RETURN AGAIN
--- NOTE | 2019-04-23 15:28 | NUR ---
THIS RN TO ROOM TO CHECK ON PT. PT VISITING WITH MASOUD. PT REPORTS SHE WENT FOR ANOTHER 7 LAP WALK. PT REPORTS 5/10 CRAMPING PAIN THAT IS TOLERABLE AT THIS TIME. PT ENCORUAGED TO REST, EASE UP ON FOOD AND ALLOW TIME FOR HEALING. PT VERBALIZES UNDERSTANDING. WATER REFILLED, ICE PROVIDED. NO ADDITIONAL REQUESTS OR COMPLAINTS AT THIS TIME. CALL LIGHT WITHIN REACH.
--- NOTE | 2019-04-23 18:26 | NUR ---
PT CALL LIGHT ON. PT REPORTS 05/01 PAIN. SEE MAR FOR MEDICATION GIVEN. NEW BAG OF FLUIDS HUNG. PT UP TO RESTROOM. INDEPENDANT IN ROOM, STEADY ON FEET. PT BACK TO BED. NO ADDITIONAL REQUESTS OR COMPLAINTS. CALL LIGHT WITHIN REACH.
--- NOTE | 2019-04-23 18:32 | NUR ---
PT CALL LIGHT ON. PT REPORTS 05/01 PAIN. SEE MAR FOR MEDICATION GIVEN. NEW BAG OF FLUIDS HUNG. PT UP TO RESTROOM. INDEPENDANT IN ROOM, STEADY ON FEET. PT BACK TO BED. NO ADDITIONAL REQUESTS OR COMPLAINTS. CALL LIGHT WITHIN REACH. PT REPORTS "I THINK MY SHINGLES ARE COMING BACK." SKIN EXAMINED. NO SIGN OF SHINGLES AT THIS TIME. WILL CONTINUE TO MONITOR.
--- NOTE | 2019-04-23 18:41 | NUR ---
PT POST OP FOR SIGMOID COLECTOMY. INDEPENDANT IN ROOM AND AROUND HALLS. PT AMBULATES FREQUENTLY, STEADY ON FEET. PRN DILAUDID GIVEN Q4 FOR PAIN THIS SHIFT. WOUND C/D/I WITH EDGES APROXIMATED. ICE IN PLACE. IV FLUIDS DECREASED TO 30ML/HR. PULSE OX DC'D PT IS TOLERATING ROOM AIR WITH O2 SATURATIOSN ABOVE 92%. PT ADVANED TO SOFT DIET, TOLERATING WITH MINMAL NAUSEA, ZOFRAN GIVEN X1. PT VOIDING QUANTITY SUFFIENT. PT USES CALL LIGHT APPROPRIATLY.
--- NOTE | 2019-04-23 20:02 | NUR ---
RECEIVED REPORT FROM DAY SHIFT RN. PATIENT IS UP AMBULATING IN THE HALLWAY. PATIENT DENIES ANY NEEDS. CALL LIGHT IN REACH.
--- NOTE | 2019-04-23 21:05 | NUR ---
PATIENT ASSESMENT COMPLETED. PATIENTS EVENING MEDICATIONS GIVEN PER ORDER. PATIENT RATES PAIN AT A 6/10. PATIENT DENIES THE NEED FOR PAIN MEDICATION AT THIS TIME. PATIENT DENIES ANY NAUSEA. PATIENT HAS MIDLINE INCISION ON ABD, JESSICA PRESENT, AND IT IS C/D/I AND WELL APPROX. PATIENT DENIES ANY FURTHER NEEDS. PATIENT IS UP TO AMBUALTE IN THE HALLWAY.
--- NOTE | 2019-04-23 23:30 | NUR ---
PATIENT GIVEN PRN PAIN MEDICATION PER ORDER FOR 7/10 PAIN IN HER ABD. PATIENT IS RESTING IN BED WATCHING TV. PATIENT COMPLETED MULTIPLE LAPS IN THE HALLWAY. PATIENT DENIES ANY FURTHER NEEDS. CALL LIGHT IN REACH.
--- NOTE | 2019-04-24 00:36 | NUR ---
PATIENT IS RESTING IN BED WITH EYES CLSOED, RR 17. CALL LIGHT IN REACH.
--- NOTE | 2019-04-24 03:22 | NUR ---
PATIENT CALLED AND REQUESTED PAIN MEDICATION FOR 710 PAIN IN HER MD ABD. PATIENT GIVEN PRN PAIN MEDICATION PER ORDER. PATIENTS ICE WATER REFILLED. PATIENT PROVIDED WITH ICE PACK PER ORDER. PATIENT DENIES ANY FURTHER NEEDS. CALL LIGHT IN REACH.
--- NOTE | 2019-04-24 05:04 | NUR ---
PATIENT RESTED WELL THROUGHOUT THE SHIFT. PATIENT IS ON A SOFT/BITE SIZE DIET, TOLERATING WELL, AND NO COMPLAINTS OF NASUEA. PATIENT IS INDEPENDENT IN THE ROOM. PATIENT IS ON RA. PATTI IS WORKING WITH PT. SCDS IN PLACE. IV INFUSING PER ORDER. PATIENT HAS ICE APPLIED TO MID ABD INCISION PRN. PATIENT HAS MID ABD INCISION, OPEN TO AIR, C/D/I, AND WELL APPROXIMATED. PATIENT HAS DENIED ANY NAUSEA. PRN PAIN MEDICCATION PER ORDER. PATIENT PASSING SMALL AMOUNTS OF GAS. PATIENT IS AAOX3 AND USES CALL LIGHT APPROPRIATELY.
--- NOTE | 2019-04-24 06:33 | NUR ---
PATIENT GIVEN PRN PAIN MEDICATION FOR 7/10 ABD PAIN. PATIENT IS RESTING IN BED WATCHING TV. PATIENT DENIES ANY NAUSEA. PATIENTS VITALS TAKEN AND RECORDED. PATIENTS INTAKE AND OUTPUT RECORDED. NO FURTHER NEED NOTED. ICE PACK PROVIDED.
--- NOTE | 2019-04-24 08:00 | NUR ---
PATIENT SITTING UP IN BED TAKING BREAKFAST. PATIENT IS GOIG TO TAKE A SHOWER AFTER BREAKFAST. CALL LIGHT WITHIN REACH. NO OTHER NEEDS AT THIS TIME
--- NOTE | 2019-04-24 09:58 | NUR ---
PATIENT SIITING UP IN BED. RN IN ROOM. VITAL SIGNS AND I&O DONE. CALL LIGHT WITHIN REACH. NO OTHER NEEDS AT THIS TIME
--- NOTE | 2019-04-24 10:00 | NUR ---
PT RESTING IN HER BED STATING SHE HAS SOME ABD PAIN BUT THAT IT IS AT AN ACCEPTABLE LEVEL. SHE DENIES ANY OTHER PROBLEMS AT THIS TIME. CALL DEXTER WITHIN REACH. PT ENCOURAGED TO CONTINUE TO WALK LAPS AND USE HER IS.
--- NOTE | 2019-04-24 10:11 | NUR ---
PATIENT AMBULATING IN THE HALLWAY
--- NOTE | 2019-04-24 10:53 | NUR ---
PT AMBULATED IN THE HALLS AND WALKED 12 LAPS. SHE STATES HER PAIN IS A 6-7/10.
--- NOTE | 2019-04-24 11:13 | NUR ---
EVERY OTHER STAPLE REMOVED FROM THE PT'S ABD INCISION ORDERED. THE INCISION SITE CONTINUES TO APPEAR HEALTHY AND INTACT AT THIS TIME.
--- NOTE | 2019-04-24 11:35 | NUR ---
PATIENT SITTING UP IN BED. IV COVERED. SETS UP BATHROOM FOR SHOWER. CALL LIGHT WITHIN REACH. NO OTHER NEEDS AT THIS TIME
--- NOTE | 2019-04-24 12:46 | NUR ---
The pt's left hand iv has infiltrated and the fluid was stopped. I called and notified Dr Phillips and received an order to pull it and leave it out. IV was dc'd as ordered and her arm is elevated on a pillow at this time.
--- NOTE | 2019-04-24 13:45 | NUR ---
MET WITH PATIENT WHO REQUESTED TO TALK A DIETITIAN TO HELP HER UNDERSTAND A LOW FIBER DIET BETTER. SHE WAS TOLD TO FOLLOW A LOW FIBER DIET A MONTH AGO WHEN SHE WAS ADMITTED FOR [facility]. SHE WAS EATING COTTAGE CHEESE, CHICKEN, SOME FISH, BUT SHE FELT LIKE SHE SHOULD BE LOSING WEIGHT BUT WASN'T. SHE IS USED TO EATING A PROTEIN WITH SALAD FOR LUNCH OR DINNER. I GAVE HER A PRINTOUT ON FIBER-RESTRICTED DIET FROM THE [facility]. EXPLAINED WHICH FRUITS AND VEGGIES ARE ALLOWED AND WHICH ONES ARE NOT. THE PRINTOUT OUT HAS A SAMPLE MENU WELL. WE DISCUSSED THAT A LOW-FIBER DIET IS TEMPORARY, SHE WILL BE ABLE TO EAT SALADS AGAIN IN A COUPLE WEEKS. SHE APPRECIATED MY HELP. MY NAME AND OFFICE NUMBER PROVIDED ON THE HANDOUT IN CASE QUESTION ARISE IN THE FUTURE.
--- NOTE | 2019-04-24 14:09 | NUR ---
PATIENT SITTING UP IN BED. VITAL SIGNS AND I&O DONE. CALL LIGHT WITHIN REACH. NO OTHER NEEDS AT THIS TIME
--- NOTE | 2019-04-24 14:21 | NUR ---
PT STATES HER PAIN IS AN 8/10 IN HER ABD BUT DENIES ANY OTHER PROBLEMS. SEE EMAR.
--- NOTE | 2019-04-24 14:50 | NUR ---
HAD QUITE THE CONVERSATION WITH PT SHE AMBULATED IN HALLWAY. SHE IS STRUGGLING WITH MAKING SOME MAJOR CHANGES IN HER LIFE. STRESS IS SOMETHING SHE NEEDS TO CHANGE, AND I SHARED WITH PT SOME POSSIBLE OPPORTUNITIES AND THINGS TO DISCOVER. SHE THANKED ME AND HAD ME WALK HER BACK TO HER RM. PT REQUESTED PRAYER, WILL FOLLOW NEEDED
--- NOTE | 2019-04-24 17:09 | NUR ---
PATIENT RESTING IN BED. DAUGHTER AND GRANDDAUGHTER IN ROOM. VITAL SIGNS AND I&O DONE. CALL LIGHT WITHIN REACH. NO OTHER NEEDS AT THIS TIME
--- NOTE | 2019-04-24 18:17 | NUR ---
PT STATES SHE IS HAVING A SHINGLES FLAIR UP ON HER RIGHT LOWER BACK AND SHE STATES SHE NORMALY TAKE ACYCLOVIR 400 MG PO QHS. I CALLED AND UPDATED DR ARIAS OF THIS AND HE REORDERED THE MEDICATION, SEE EMAR. PT CURRENTLY AMBULATING IN THE HALLS. HER LEFT HAND WHERE HER IV INFILTRATED NOW APPEARS NORMAL WITH NO NOTED SWELLING.
--- NOTE | 2019-04-24 19:09 | NUR ---
RECEIVED REPORT FROM WSE FRAGOSO. pt RESTING IN BED. PAIN 6/10 WILL GIVEN PAIN MEDICATION WHEN DUE. WHITEBOARD UPDATED. CALL LIGHT WITHIN REACH.
--- NOTE | 2019-04-24 19:23 | NUR ---
CHARGE NURSE REPORT RECEIVED. PT AWAKE, WATCHING TV. DENIES NEEDS, BUT STATED IT WOULD BE NICE TO HAVE A BM. PASSING SOME GAS, PLANS TO AMBULATE THIS SHIFT.
--- NOTE | 2019-04-24 19:39 | NUR ---
PAIN MEDICATION GIVEN FOR 610 PAIN. ICE WATER PROVIDED. NO FURTHER REQUESTS AT THIS TIME. pt UP TO AMBULATE.
--- NOTE | 2019-04-24 21:50 | NUR ---
CALL LIGHT ON. pt REQUESTED NIGHTLY MEDS. GIVEN (SEE MAR). pt WALKED 49 LAPS PRIOR TO SHIFT, 10 LAPS DURING SHIFT. ASSESSMENT DONE. NO FURTHER REQUESTS AT THIS TIME. CALL LIGHT WITHIN REACH.
--- NOTE | 2019-04-24 23:32 | NUR ---
CALL LIGHT ON. pt REQUESTED PAIN MEDS FOR 06/01 PAIN. GIVEN (SEE MAR). ICE PACK AND WATER PROVIDED. EDUCATION ON PAIN MANAGMENT. CALL LIGHT WITHIN REACH. NO FURTHER REQUESTS AT THIS TIME.
--- NOTE | 2019-04-25 01:31 | NUR ---
ROUNDED ON pt. RESTING WITH EYES CLOSED RESPIRATIONS REGULAR AND UNLABORED. RATE = 18. CALL LIGHT WITHIN REACH.
--- NOTE | 2019-04-25 03:20 | NUR ---
CALL LIGHT ON pt REQUESTED ICE PACK, PROVIDED. PRN PAIN MEDS GIVEN FOR 7/10 PAIN. ASSESSMENT DONE. CALL LIGHT WITHIN REACH.
--- NOTE | 2019-04-25 05:36 | NUR ---
ROUNDED ON pt. RESTING WITH EYES CLOSED, RESPIRATIONS REGULAR AND UNLABORED. RATE = 18. CALL LIGHT WITHIN REACH.
--- NOTE | 2019-04-25 05:37 | NUR ---
pt RESTED ON AND OFF DURING SHIFT. TOLERATING SOFT/BITE SIZED DIET. pt AMBULATED INDEPENDENTLY. PRN PAIN MEDS GIVEN X3. ICE TO INCISION, EDGES APPROXIMATED. VOIDING QS. USES CALL LIGHT APPROPRIATELY.
--- NOTE | 2019-04-25 07:15 | NUR ---
REPORT RECEIVED FROM WES ROBLES. PT RESTING IN BED. PT REPORTS 5/10 PAIN AND DENIES NAUSEA. PT DENIES ADDITIONAL REQUESTS AND COMPLAINTS. BED RAILS UP, CALL LIGTH WITHIN REACH.
--- NOTE | 2019-04-25 08:10 | NUR ---
MORNING ASSESSMENT AND MEDICATION DUE. PT EATING BREAKFAST. PT REPORTS 5-6/10 PAIN, SEE MAR FOR MEDICATION GIVEN. ASSESSMETN DONE. MIDLINE INCISION INTACT, EVERY OTHER STAPLE HAS BEEN REMOVED. SWELLING NOTED AT INCISION NEAR UMBILICUS. PT DENIES NAUSEA. PT AMBULATING FREQUENTLY. CMS INTACT. PT HAS NOT YET HAD BOWEL MOVMENT BUT REPORTS PASSING GAS FREQUENTLY. PT TOLERATING SOFT DIET WELL. NEW ICE PACK PROVIDED. NO ADDITIONAL REQUESTS OR COMPLAINTS AT THIS TIME. CALL LIGHT WITHIN REACH.
--- NOTE | 2019-04-25 09:32 | NUR ---
REMAINING JESSICA REMOVED PER MD ORDER. PROXIMAL END OF INCISION SHOWS PINPOINT SIZE AREA THAT IS NO LONGER APROXIMATED. MD CALLED. ORDERS GIVEN TO APPLY STERI STRIPS AND GIVE PT ABDOMINAL BINDER TO TAKE HOME. STERI STRIPS APPLIED. ABDOMINAL BINDER AQUIRED AND APPLIED TO PT. PT DEMONSTRATES UNDERSTANDING OF ABDOMINAL BINDER USE. PT AWAITING DISCHARGE INSTRUCTIONS. NO ADDITIONAL REQUESTS OR COMPLAINTS AT THIS TIME.
[2019-04-25] MEDS ORDERED: DILAUDID4 MG PO (10:04)
--- NOTE | 2019-04-25 11:15 | NUR ---
PT READY FOR DISCHRAGE. PT UP AND SHOWERED AND DRESSED. PT STEADY ON FEET, INDEPENDANT. DISCHRAGE INSTRUCTIONS REVIEWED WITH PT. PT VERBALIZES UNDERSTANDING AND STATES HER QUSTIONS HAVE BEEN ANSWERED. VITALS TAKEN. PT HAS FINISHED SPEAKING WITH HERMINIA. PT BELONGINGS PACKED. AWAITING GRANDDAUGHTER TO PICK HER UP. PT WILL CALL WHEN GRANDDAUGHTER ARRIVES. CALL LIGHT WITHIN REACH.
--- NOTE | 2019-04-25 11:36 | NUR ---
PTS GRANDDAUGHTER ARRIVED. PT TRANSFERES SELF TO WHEEL CHAIR. ABDOMINAL BINDER IN PLACE. PT WHEELED FROM UNIT. NO REQEUSTS, COMPLAINTS, OR QUESTIONS.
--- NOTE | 2019-04-25 15:23 | NUR ---
SHE TOOK A SHOWER BEFORE SHE WENT HOME TODAY. SHE ALSO WALKED 15 LAPS AROUND MED SURG. THIS MORNING.
--- NOTE | 2019-04-26 09:45 | DS ---
[facility] [address], [place] [address] Signed ADMISSION DATE: 04/19/2019 DISCHARGE DATE: 04/25/2019 FINAL DIAGNOSIS: Persistent/recurrent sigmoid diverticulitis. PROCEDURE: Low anterior resection with Moreira side-to-end colorectal anastomosis. HISTORY OF PRESENT ILLNESS: Oanh is a 58-year-old female who for the last 4 to 5 years has had 1 to 3 episodes of diverticulitis each month. 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 She was quite worried that she was going to have a tumor in her colon. Consequently, she put off having the surgery. She has been a week in hospital with me on IV antibiotics for the diverticular disease. We had long discussions each and every day about her diverticulitis. In the office, we had the similar discussion and I gave her a [employer] brochure on diverticulitis. She has come to realize that she is not going to escape her persistent diverticulitis and she decided to come for her surgery. HOSPITAL COURSE: Oanh was taken to the operating room on 04/19/2019 for an uncomplicated low anterior resection with colorectal anastomosis, hand-sewn in 2 layers. This is a Moreira side-to-end anastomosis. Her intraoperative and postoperative course were uncomplicated. However, she did use quite a bit of narcotics to control her pain. I think that kept her in the hospital an extra day or two. Overall, she has made good progress. She is tolerating her diet. She is having gas, but no bowel movement yet. Her incision is healing well and her abdominal exam is benign. Consequently, we are going to be discharging her home today. DISCHARGE PLANS AND MEDICATIONS: Miko is going to be discharged to home with Dilaudid 4 mg tablets, 1-2 tablets p.o. q.6 hours p.r.n. for severe postop pain. We will dispense #25 tablets with no refills. I have encouraged her to wean herself off the Dilaudid, move over to [id number] Tylenol, ibuprofen, or Aleve. In addition, she has a history of shingles and her shingles started to act up yesterday, so we resumed her acyclovir. She can continue that and her other chronic medications at home. She will follow a regular diet. She can perform her activities of daily living including walking up downstairs and showering and bathing as usual. I have asked her not to do any heavy pushing, pulling, or lifting over 20 pounds. I will have her back in the office in a week or so after followup. All her Electronically Signed By: TAYLOR ARIAS MD 04/26/19 0945 PATIENT NAME: OANH BOONE DISCHARGE SUMMARY DATE OF : 64 REPORT #: [id number] PHYSICIAN: TAYLOR ARIAS MD PCP: AARON GREGG PA-C REPORT IS CONFIDENTIAL AND NOT TO BE RELEASED WITHOUT AUTHORIZATION [facility] [address] [place] [id number] Signed kina are now removed. She has expressed understanding and agrees to above plan. Taylor Arias MD ALB/MODL /[id number] cc: MD Taylor Funez MD Copies: TAYLOR ARIAS MD ~ Electronically Signed By: TAYLOR ARIAS MD 04/26/19 0945 PATIENT NAME: OANH BOONE DISCHARGE SUMMARY DATE OF : 64 REPORT #: [id number] PHYSICIAN: TAYLOR ARIAS MD PCP: AARON GREGG PA-C REPORT IS CONFIDENTIAL AND NOT TO BE RELEASED WITHOUT AUTHORIZATION
== END 2019-04-25 11:31 | disposition home or self-care (01) | DRG 331 ==
LOC: DSVR 04-19 08:55 → MS 04-19 08:55
PROVIDERS: ADMIT Colon & Rectal Surgery
PROC: 3E0T3BZ Introduction of Anesthetic Agent into Peripheral Nerves and Plexi, Percutaneous Approach (ICD-10-PCS; 2019-04-19)
PROC: 0DTN0ZZ Resection of Sigmoid Colon, Open Approach (ICD-10-PCS; principal; 2019-04-19 11:00)
DX: K57.32 Diverticulitis of large intestine without perforation or abscess without bleeding (principal); G89.18 Other acute postprocedural pain; B02.9 Zoster without complications; E66.9 Obesity, unspecified; K21.9 Gastro-esophageal reflux disease without esophagitis; G47.00 Insomnia, unspecified; Z68.37 Body mass index [BMI] 37.0-37.9, adult; Z86.010 Personal history of colon polyps; Z87.891 Personal history of nicotine dependence; Z79.899 Other long term (current) drug therapy; Z88.5 Allergy status to narcotic agent; Z88.8 Allergy status to other drugs, medicaments and biological substances
CPT/HCPCS: 00790; 36415; 64488; 76942; 80048; 83735; 84100; 85025; 94660; 94760; 94762; 97161; J0131; J0330; J0690; J1170; J1644; J1650; J1885; J2250; J2405; J2550; J2704; J2795; J3010; J3475; J7120

== ENCOUNTER 2020-11-19 08:19 | Day surgery (SDC) | payer OTHER ==
[~2020-11-19] VITALS: Ht 170.2 cm; Wt 119.1 kg
[~2020-11-19 08:19] MED LIST changes: +DILAUDID4 MG PO
--- NOTE | 2020-11-19 10:06 | NUR ---
11/19/20 1006 [address] 1000- PT TO PACU IN LL POSITION. EYES OPEN TALKING WITH RN ABOUT PROCEDURE. BREATHING EASY AND UNLABORED. PT DENIES PAIN AND NAUSEA. SPO2 >95% ON 2 L O2 VIA NC. ETCO2 34. PT ENCOURAGED TO PASS GAS. 1005- PT SLEEPING COMFORTABLY WITH INTERMITTANT SNORING. SPO2 >90% ON 2 L O2 VIA NC. IV POSITIONAL AND WITH ADJUSTMENT OF HAND, NOW INFUSING TO GRAVITY WELL.
--- NOTE | 2020-11-20 11:05 | OR ---
[facility] [address], [place] [address] Signed DATE OF OPERATION: 11/19/2020 SURGEON: Taylor Arias MD PREOPERATIVE DIAGNOSES: 1. History of diverticulosis requiring sigmoid resection in 2019. 2. Moreira colorectal anastomosis. 3. Rectal carcinoid tumor in 2011 (tattoo). 4. Right adenomatous colonic polyp in 2014. POSTOPERATIVE DIAGNOSES: 1. Rectal tattoo at 5 cm. 2. Moreira colorectal anastomosis at 18 cm. 3. A 4 mm rectal polyps at 10 cm. 4. Biopsy of rectal tattoo. 5. A 4 mm polyp at 30 cm. 6. A 4 mm polyps x4 at 20 cm (left colon). 7. Minimal internal hemorrhoids. PROCEDURES: Colonoscopy with hot biopsies. ESTIMATED BLOOD LOSS: None. INDICATIONS: Oanh is a 60-year-old female, who returns for followup colonoscopy. Her initial colonoscopy came in [address] Chew. She had diverticular disease at that time. She also had a small rectal carcinoid tumor. She underwent transanal excision of that rectal carcinoid tumor in [address] Chew, that was for clear margins. The tattoo had been left in place. Her followup colonoscopy with Dr. Chew in 2014 revealed a small adenomatous polyp in the right colon. The area around the rectal tattoo was fine. I met her because of recurring episodes of sigmoid diverticulitis. She underwent her open sigmoid resection in 2019 for the diverticulitis with a Moreira side-to-end colorectal anastomosis. Since that time, she says she has been doing great. She still has a little pain in the epigastric area at midline incision; however, no hernia on palpation. There is no family history of colon cancer or polyps. In the office, I had given her a pamphlet on colonoscopy. She understands the nature of the test along with its risks including, but not limited to gas bloating, crampy abdominal pain, bleeding, perforation requiring surgery, and missed diagnosis. She also recalls the need for IV Electronically Signed By: TAYLOR ARIAS MD 11/20/20 1105 PATIENT NAME: OANH BOONE OPERATIVE REPORT DATE OF : 64 REPORT #: [id number] PHYSICIAN: TAYLOR ARIAS MD PCP: AARON GREGG PA-C REPORT IS CONFIDENTIAL AND NOT TO BE RELEASED WITHOUT AUTHORIZATION [facility] [address] [place] [id number] Signed conscious sedation. She said she woke up once during previous endoscopy. She had expressed understanding and wished to proceed. DESCRIPTION OF PROCEDURE: Oanh was taken into our endoscopy suite and placed in the left lateral decubitus position. She was given a total of 9 mg of Versed and 175 mcg of fentanyl. A digital rectal exam was performed and this was unremarkable. The adult colonoscope was introduced, and we could immediately see the tattoo about 5 cm from the anal verge. There was a small buckling of the mucosa on the edge of the tattoo. We went ahead and removed that for pathologic review. Otherwise, it appears to be quite fine. The scope had been advanced then all the way up into the cecum. It took some extra sedation abdominal compression in order to advance the scope. Her prep was quite good. We could easily see the appendiceal orifice and the ileocecal valve. The scope was then slowly withdrawn. We had taken pictures throughout for photodocumentation. The above-mentioned polyps were easily removed with the help of hot biopsy forceps. Her anastomosis was well healed. There was no ulceration or granulation tissue. The scope was then retroflexed in the rectum. She does have minimal internal hemorrhoid tissue columns. After this, the gas was suctioned out and colonoscope removed. Oanh tolerated the procedure quite well. RECOMMENDATIONS: I will see Oanh back in my office in 7 to 14 days to review her results. Taylor Arias MD ALB/MODL /[id number] cc: Taylor Arias MD Copies: TAYLOR ARIAS MD ~ Electronically Signed By: TAYLOR ARIAS MD 11/20/20 1105 PATIENT NAME: OANH BOONE OPERATIVE REPORT DATE OF : 64 REPORT #: [id number] PHYSICIAN: TAYLOR ARIAS MD PCP: AARON GREGG PA-C REPORT IS CONFIDENTIAL AND NOT TO BE RELEASED WITHOUT AUTHORIZATION
--- NOTE | 2020-11-23 14:26 | PATH ---
[facility] [address] [facility] [place] [address] Signed SPECIMEN(S): A COLON POLYP AT 10 CM SPECIMEN(S): B RECTUM SPECIMEN(S): C COLON POLYP AT 30 CM SPECIMEN(S): D SIGMOID POLYP AT 20 CM SPECIMEN SOURCE: A. COLON POLYP AT 10 CM B. RECTUM C. COLON POLYP AT 30 CM D. SIGMOID POLYP AT 20 CM CLINICAL HISTORY: Rectal carcinoid tumor 2011, diverticulosis, hx polyps. Post: Colon, rectal polyps. MICROSCOPIC DESCRIPTION: Histologic sections of all submitted blocks are examined by light microscopy. These findings, together with the gross examination, support the pathologic diagnosis. FINAL PATHOLOGIC DIAGNOSIS: A. Colon polyp at 10 cm: - Hyperplastic polyp (one fragment). B. Rectum, biopsy: - Hyperplastic polyp (one fragment). C. Colon polyp at 30 cm: - Polypoid colonic mucosa with focal epithelial erosion and mixed inflammation. - Negative for definite dysplasia. D. Sigmoid polyp at 20 cm: - Polypoid colonic mucosa with slight hyperplastic features and focal epithelial erosion. - Negative for atypical epithelial features. JVR:[id number] GROSS DESCRIPTION: Four specimens are received in four containers, labeled "TO." A. The specimen, labeled "TO, colon polyp at 10 cm," is received in formalin and consists of two murphy soft tissue fragments that measure 0.2 cm in greatest dimension. The specimen is entirely submitted in cassette (A1). B. The specimen, labeled "TO, rectum biopsy," is received in formalin and PATIENT NAME: DAKOTA BOONE PATHOLOGY DATE OF : 64 REPORT #: [id number] PHYSICIAN: INA CONTRERAS PCP: AARON GREGG PA-C REPORT IS CONFIDENTIAL AND NOT TO BE RELEASED WITHOUT AUTHORIZATION [facility] [address] [place], [place] [address] Signed consists of one murphy soft tissue fragment that measures 0.2 cm in greatest dimension. The specimen is entirely submitted in cassette (B1). C. The specimen, labeled "TO, colon polyp at 30 cm," is received in formalin and consists of one murphy soft tissue fragment that measures 0.1 cm in greatest dimension. The specimen is entirely submitted in cassette (C1). D. The specimen, labeled "TO, sigmoid colon polyp at 30 cm," is received in formalin and consists of five murphy soft tissue fragments that measure 0.1 to 0.4 cm in greatest dimension. The specimen is entirely submitted in cassette (D1). JS (under the direct supervision of a pathologist) The Gross Description was prepared using a voice recognition system. The report was reviewed for accuracy; however, sound-alike word errors, addition and/or deletions may occur. If there is any question about this report, please contact Client Services. PERFORMING LABORATORY: The technical component was performed by [facility] [address] [place] [id number] (Anchorer: Rose Marie Gutiérrez MD; CLIA# [id number]). Professional interpretation was performed by [facility]), [address] [address]. Diagnostician: Jakub Lewis MD Pathologist Electronically Signed 11/23/2020 Copies: ~ PATIENT NAME: DAKOTA BOONE PATHOLOGY DATE OF : 64 REPORT #: [id number] PHYSICIAN: INA PATHOLOGY PCP: AARON GREGG PA-C REPORT IS CONFIDENTIAL AND NOT TO BE RELEASED WITHOUT AUTHORIZATION
== END 2020-11-19 10:50 | disposition home or self-care (01) ==
LOC: OPS 08:19 → DS 08:26 → OPS 09:45
PROVIDERS: ATTEND Colon & Rectal Surgery
PROC: 0DBE8ZX Excision of Large Intestine, Via Natural or Artificial Opening Endoscopic, Diagnostic (ICD-10-PCS; principal; 2020-11-19 10:00)
DX: Z12.11 Encounter for screening for malignant neoplasm of colon (principal); K63.5 Polyp of colon; K62.1 Rectal polyp; K52.9 Noninfective gastroenteritis and colitis, unspecified; K63.89 Other specified diseases of intestine; K64.8 Other hemorrhoids; E78.00 Pure hypercholesterolemia, unspecified; K21.9 Gastro-esophageal reflux disease without esophagitis; B02.9 Zoster without complications; Z88.5 Allergy status to narcotic agent; Z88.8 Allergy status to other drugs, medicaments and biological substances; Z86.010 Personal history of colon polyps; Z90.49 Acquired absence of other specified parts of digestive tract; Z87.19 Personal history of other diseases of the digestive system
CPT/HCPCS: 99153; G0500; J2250; J3010; J7121

== ENCOUNTER 2021-12-08 15:53 | Inpatient (IN) | payer OTHER ==
[~2021-12-08] VITALS: Ht 170.2 cm; Wt 93.8 kg
--- NOTE | 2021-12-08 21:36 | NUR ---
PT ADMITTED FROM ED @2048. A/O, RA, KNOWN TO THIS WINDOW SHADE ESTIMATOR. SELF TRANSFERED FROM STRETCHER TO BED, MILD DISCOMFORT NOTED WITH MOVEMENT. LIVES ALONE, HAS RECENTLY LOST PLANNED WEIGHT OF NEARLY 50 POUNDS. H/O DIVERTICULITIS, WITH COLON RESECTION BY DR ARIAS IN THE PAST. EDUCATED PT TO CALL STAFF VS GETTING UP ON HER OWN. CALL LIGHT WITHIN REACH.
--- NOTE | 2021-12-08 22:22 | NUR ---
ASSESMENT COMPLETED. PATIENT RATES PAIN IN HER MID ABD AT A 7/10. PRN PAIN MEDICATION GIVEN PER ORDER. PATIENT REPORTS NAUSEA, PRN NAUSEA MEDICATION GIVEN PER ORDER. PATIENTS IV INFUSING PER ORDER. PATIENT POVIDED WARM PACK FOR HER ABD. PATIENT UP TO THE BATHROOM, IS STEADY ON HER FEET. PATIENT ABLE TO VOID.PATIENT IS BACK IN BED RESTING. NO FURTHER NEEDS NOTED. CALL LIGHT IN REAC.
--- NOTE | 2021-12-08 23:44 | NUR ---
PATIENT IS RESTING IN BED WITH EYES CLOSED, RR 17. CALL LIGHT IN REACH.
--- NOTE | 2021-12-09 00:18 | NUR ---
PATIENT CALLED AND REPORT 7/10 MID ABD PAIN. PRN PAIN MEDICATION GIVEN PER ORDER. PATIENT DENIES ANY FURTHER NEEDS. CALL LIGHT IN REACH.
--- NOTE | 2021-12-09 01:17 | NUR ---
PATIENT RESTING IN BED WATCHING TV. NO NEEDS NOTED AT THIS TIME. CALL LIGHT IN REACH.
--- NOTE | 2021-12-09 02:21 | NUR ---
PATIENTS VITALS TAKEN AND RECORDED. INTAKE AND OUTPUT RECORDED. PATIENT RATES PAIN IN MID ABD AT A 6-7/10. PRN PAIN MEDICATION GIVEN PER ORDER. PATIENT DENIES ANY FURTHER NEEDS. CALL LIGHT IN REACH.
--- NOTE | 2021-12-09 04:52 | NUR ---
PATIENT REPORTS 7/10 MID ABD PAIN. PATIENT GIVEN PRN PAIN MEDICATION PER ORDER. PATIENT DENIES ANY NAUSEA. IV INFUSING PER ORDER. INTAKE AND OUTPUT RECORDED. PATIENT DENIES ANY FURTHER NEEDS. CALL LIGHT IN REACH.
--- NOTE | 2021-12-09 05:52 | NUR ---
PATIENT IS NPO AT THIS TIME. PRN PAIN AND NAUSEA MEDICATION PER ORDER. IND IN ROOM. PATIENT IS ON RA. IV INFUSING PER ORDER. WARM PACKS FOR MID ABD PAIN PRN.
--- NOTE | 2021-12-09 06:41 | NUR ---
PATIENT GIVEN PRN NAUSEA MEDICATION. PATIENT IS RESTING IN BED WATCHING TV. PATIENT RATES PAIN AT A 2/10 AND DENIES THE NEED FOR PAIN MEDICATION. IV INFUSING PER ORDER.
--- NOTE | 2021-12-09 07:45 | NUR ---
PT WAS IN BED. PT REFUSED TO GET UP INTO THE CHAIR. PT STATED THEY HAD ASHLEY ONE HOUR OF SLEEP AND WANTED TO REST SOME MORE. WHITEBOARD UPDATED. CALL LIGHT WITHIN REACH. NO FURTHER NEEDS AT THIS TIME.
--- NOTE | 2021-12-09 09:30 | NUR ---
REPORT RECEIVED FROM NIGHT RN AND PT. CARE RESUMED. PT. IS ALERT AND ORIENTED TO ALL. SHE COMPLAINS OF 6/10 ABDOMINAL PAIN. ADMIN DILAUDID IVP. BOWEL TONES HYPOACTIVE THROUGHOUT. IV SITE WNL AND IVF INFUSING. PT. DENIES FURTHER NEEDS. DISCUSSED PRE-OP CONCERNS, MEDS AND POC. LEFT RESTING WITH CALL LIGHT IN REACH.
--- NOTE | 2021-12-09 09:30 | NUR ---
Spoke with pt and she states she lives alone in a 1 story home. She has hand rails to get into the home. She does not use any DME and is active She drives. States he daughter and friend will assist her if she has any needs. Pt does not believe she will have any needs. Denies any financial issues. Plans on dc to home after surgery. We discussed the Dr. may want her to stay overnight.
--- NOTE | 2021-12-09 11:57 | NUR ---
PRE-PROCEDURE CHECKLIST COMPLETED. PT. C/O ACHING ABDOMINAL PAIN. ADMIN DILAUDID. IVF CHANGED PER ORDER. PT. LEFT RESTING WITH CALL LIGHT IN REACH.
--- NOTE | 2021-12-09 12:10 | NUR ---
MED REC COMPLETE
--- NOTE | 2021-12-09 13:34 | NUR ---
PT. TAKEN TO SURGERY BY RN. SCD IN PLACE AND LR WITH STRAIGHT TUBING INFUSING. NECKLACE PLACED IN CONTAINER AT BEDSIDE.
--- NOTE | 2021-12-09 14:28 | NUR ---
PT. WAS RETURNED FROM SURGERY AND PROCEDURE RESCHEDULED DUE TO HAVING ICE CHIPS. CARBON SETTER HAD MISTAKENLY GIVEN ICE CHIPS. IVF INFUSING AND ANCEF ADMIN.
--- NOTE | 2021-12-09 14:57 | NUR ---
PT. C/O NAUSEA. ADMIN. ZOFRAN. DAUGHTER AT BEDSIDE. PT. DENIES FURTHER NEEDS. WILL CONTINUE TO MONITOR.
--- NOTE | 2021-12-09 16:21 | NUR ---
PT USED CALL LIGHT APPROPRIATELY FOR UPDATES ON SURGERY TIME. OR CHARGE CALLED AND PT. UPDATED. PT. DENIES FURTHER NEEDS.
--- NOTE | 2021-12-09 18:25 | NUR ---
PT. C/O HEADACHE BUT REFUSES IV TYLENOL SHE IS DUE TO GO TO SURGERY ANY TIME. WILL CONTINUE TO MONITOR.
--- NOTE | 2021-12-09 18:35 | NUR ---
PT. LEFT WITH RN FOR SURGERY.
--- NOTE | 2021-12-09 18:55 | NUR ---
SHIFT REPORT RECEIVED FROM DAYSHIFT WES TURNER AT BEDSIDE, pt CURRENTLY IN OR. WILL WAIT UNT[facility]
--- NOTE | 2021-12-09 21:16 | NUR ---
12/09/212115 Shayna Alvarez LE 2058: PT ARRIVES TO PACU WITH ORAL AIRWAY IN PLACE. SHE IS NOT RESPONSIVE TO STIMULI. LE 2109: PT VS ARE STABLE. CONTINUED NON-RESPONSIVE TO STIMULI.
--- NOTE | 2021-12-09 21:55 | NUR ---
pt ARRIVED BACK FROM OR, BEDSIDE REPORT RECEIVED FROM CAR DELIVERERWES HADLEY. pt AWAKE AND RESTING IN BED, REPORTS 9/10 PAIN AND MILD NAUSEA. WARM TEA PROVIDED PER pt REQUEST. ABD BINDER IN PLACE, SCD'S ALSO ON. INCISIONS X2 COVERED WITH DRESSING, SCANT SHADOWING NOTED. CARMEN DRAINS X2 WNL, PATENT. OUTPUT SANGUINEOUS IN COLOR. WILL MONITOR OUTPUT. IV SITE WNL, FLUIDS RESUMED PER MD ORDERS. SCHEDULED EVENING MEDS GIVEN ALONG WITH PRN PAIN MEDICATION. CPOX IN PLACE, NO DISTRESS NOTED. VSS, CALL LIGHT IN REACH.
--- NOTE | 2021-12-09 23:15 | NUR ---
CPOX ALARMING, ISSUE RESOLVED. pt REMAINS ON RA, RR EVEN AND UNLABORED. NO DISTRESS NOTED. CALL LIGHT IN REACH. SCD'S ON FOR SAFETY.
--- NOTE | 2021-12-09 23:49 | NUR ---
fax sent to telepharmacy to retime pt's iv ancef, medication last given before going in to or per emar.
--- NOTE | 2021-12-10 00:53 | NUR ---
ROUNDED ON pt, VSS. pt REMAINS ON RA, RR EVEN AND UNLABORED, 16. PRN TRAZODOEN GIVEN PER pt REQUEST D/T INABILITIY TO SLEEP. pt THEN UP SBA TO VOID IN BATHROOM AND BACK TO BED. CPOX IN PLACE. IV FLUIDS INFUSING DIRECTED, IV SITE WNL. NO CHANGES TO ABD INCISIONS X2, CARMEN DRAINS REMAIN PATENT. CALL LIGHT IN REACH. FRESH HOT WATER PROVIDED.
--- NOTE | 2021-12-10 02:25 | NUR ---
Patient via bathroom and back to bed with IV pole. Patient can reach call light.
--- NOTE | 2021-12-10 02:44 | NUR ---
ASSESSMENT COMPLETE, PRN PAIN MEDICATION GIVEN FOR 8/10 PAIN IN ABD. CARMEN DRAINS EMPTIED- 40MLS OUT OF DRAIN #1, 50MLS FROM DRAIN #2. COLOR REMAINS UNCHANGED, SANGUINEOUS. NO NEW SHADOWING NOTED, IV SITE WNL. IV ABX INFUSING ALOGN WITH IV FLUIDS. CALL LIGHT IN REACH.
--- NOTE | 2021-12-10 04:09 | NUR ---
pt RESTING IN BED WITH EYES CLOSED, ON RA. SPO2 LOW 90'S. HR 60'S. NO DISTRESS NOTED. CALL LIGHT IN REACH.
--- NOTE | 2021-12-10 05:00 | NUR ---
in to assist rn with vitals, pt back for the toilet, hot water for tea provided to pt, no further needs at this time
--- NOTE | 2021-12-10 05:09 | NUR ---
VSS AND I&O'S COMPLETE. CPOX REMAINS IN PLACE, pt ON RA. RR EVEN AND UNLABORED. pt UP SBA TO VOID AND IS BACK IN BED. SCD'S IN PLACE. IV FLUIDS HUNG, SITE WNL. FRESH HOT WATER PROVIDED, NO FURTHER NEEDS, CALL LIGHT IN REACH.
--- NOTE | 2021-12-10 07:30 | NUR ---
REPORT RECIEVED FROM ICE GUARD SKATING RINK RN, PT POST OP DAY 1 HERNIA REPAIR, AWAKE ALERT, WANTING TO GET UP TO AMBULATE ASSISTED TO GET UP IND WHEN AMBULATING NO OTHER NEEDS AT THE MOMENT
--- NOTE | 2021-12-10 07:57 | NUR ---
pr requesting oral pain meds, dr sawant called to request see orders
--- NOTE | 2021-12-10 09:30 | NUR ---
Spoke with pt and she states she feels well and plans on dc to home today. Has surgical pain, but pain from hernia is gone. Denies needs to go home.
--- NOTE | 2021-12-10 09:40 | NUR ---
RN IN ROOM TO ROUND TO START IV ABX, NEW ABD BINDER DELIVERED TO PT, THE PREVIOUS ONE WAS BIG ON HER.
--- NOTE | 2021-12-10 11:09 | NUR ---
PT UP AND WALKIN THE HALLS REPORTED DID 10 LAPS, PAIN IS 5/10 MOTRIN GIVEN TO PT, UP IND IN ROOM AND AND BRUSHING TEETH NO OTHER NEEDS AT THE MOMENT
--- NOTE | 2021-12-10 11:55 | NUR ---
PT ALERT, ORIENTED AND SITTING UP IN BED WATCHING TV. PT HOPES TO DC LATER TODAY. PT IS POSITIVE,PLEASANT AND THANKED ME ONCE AGAIN FOR A P.SONIAWL SHE RECEIVED FROM A PREVIOUS VISIT. PT REQUESTED PRAYER WILL FOLLOW
[2021-12-10] MEDS ORDERED: IBUPROFEN600 MG PO (13:09)
[2021-12-10] MEDS ORDERED: ACETAMINOPHEN500 MG PO (13:10)
[2021-12-10] MEDS ORDERED: OXYCODON-ACETA1 EAC2 PO (13:10)
--- NOTE | 2021-12-12 10:56 | OR ---
[facility] [address], [place] [address] Signed DATE OF OPERATION: 12/09/2021 SURGEON: Naomy Urrutia MD PREOPERATIVE DIAGNOSES: 1. Incarcerated upper abdominal incisional hernia (large defect incarcerated omentum). 2. Incarcerated lower abdominal incision (incarcerated small bowel). 3. Obesity. POSTOPERATIVE DIAGNOSES: 1. Incarcerated upper abdominal incisional hernia (large defect incarcerated omentum). 2. Incarcerated lower abdominal incision (incarcerated small bowel). 3. Obesity. PROCEDURE PERFORMED: 1. Repair of incisional hernia, upper abdomen (incarcerated) with implantation of Prolene mesh underlay technique. 2. Separate incision repair of lower abdominal wall incarcerated incisional hernia. 3. Implantation of Prolene mesh underlay technique. ANESTHESIA: General endotracheal, Daryn Emanuel, HAND SHOES SEWER and local 20 mL of 0.25% Marcaine with epinephrine. INDICATION: This 61-year-old obese white woman is a patient of Aaron gregg. In the past several years, she underwent sigmoid resection for diverticular disease by Dr. Taylor Arias. In the early postoperative period, she felt something unusual in the upper aspect of her incision, and given her significant obesity at that time, hernia was not particularly identified. Over time, she has had increasing pain in the upper abdomen and sometimes below the umbilicus as well. In the past several days, she had rather severe pain particularly in the upper abdomen but also in the lower abdomen and it became unbearable enough that she presented to the emergency room. It is noted that she has lost approximately 50 pounds in the past several months on Optavia diet. Evaluation in the emergency room last night by Dr. Jb Gunn confirmed two incarcerated incisional hernias, one well above the umbilicus, the other well below the umbilicus. The upper one is rather large and broad-based and has primarily omentum within it. The lower one smaller but still significant in size at least 6 cm defect showed small bowel loops without sign of infection or inflammation or edema. Electronically Signed By: NAOMY URRUTIA MD 12/12/21 1056 PATIENT NAME: DAKOTA BOONE OPERATIVE REPORT DATE OF : 64 REPORT #: [id number] PHYSICIAN: NAOMY URRUTIA MD PCP: AARON GREGG PA-C REPORT IS CONFIDENTIAL AND NOT TO BE RELEASED WITHOUT AUTHORIZATION [facility] [address], [place] [address] Signed The patient has been admitted by de and has undergone fluid resuscitation and is now to undergo repair of both of the incarcerated hernias. The risks of bleeding, infection, recurrence, and other unforeseen complications was reviewed in detail. She understands and wished to proceed. FINDINGS: Upper abdominal incisional hernia was repaired first. Had a very large sac and contained primarily omentum. There was no sign of ischemia to the incarcerated hernia contents. The fascial edges were well defined and implantation of Prolene mesh as part of the repair was undertaken in the properitoneal space, overlapping the fascial edges by about 4 cm. The fascia was reapproximated transversely with interrupted vertical mattress sutures. In addition to the implantation of mesh, the drain was placed. The infraumbilical incision which was far separate from the upper abdominal incisional hernia showed a thickened hernia sac and small bowel within it, but without sign of ischemia or vascular compromise in any way. A similar repair was undertaken with implantation of Prolene mesh in an underlay technique in a retromuscular position with peritoneal remnant as a biologic barrier to the intraabdominal contents. The fascia was similarly reapproximated transversely and drain also placed. DESCRIPTION OF PROCEDURE: The patient was brought to the operating room and given a general endotracheal anesthetic. Preoperative antibiotic Ancef 3 g was given in the operating room. At the time of operation, a previous dose of 2 g had been given 3 hours earlier. The abdomen was prepared with a chlorhexidine solution and draped sterilely. The upper abdominal incarcerated incision area was incised vertically in the previous midline incision. Dissection carried through the subcutaneous tissue with blunt electrocautery dissection. Rather sizable and very thickened hernia sac was noted. This was dissected free from the surrounding soft tissue ultimately identifying the fascial edges. The fascial edges were freed from the underlying hernia sac and the properitoneal space developed circumferentially for at least 4 cm. The hernia sac was opened and the intraabdominal contents examined and found to be primarily omentum which was easily reduced. The hernia sac was secured at its neck in a longitudinal fashion with 2-0 Vicryl suture and redundant hernia sac amputated and passed for pathology. As the properitoneal space was optimal for implantation of mesh, a 6 x 6 inch piece of Prolene mesh was cut to an elliptical configuration and secured transversely dominantly into the properitoneal space with interrupted 0 Prolene sutures with Prolene pledgets. Once this was completed, the fascial edges were reapproximated with interrupted vertical mattress 0 Prolene suture with Prolene pledgets as well, closing the fascia well. Through a separate stab incision, a 7 mm flat Colby drain was placed. A 10 mL of 0.25% Marcaine was injected locally. The Brandon's layer was reapproximated with interrupted 2-0 Vicryl Electronically Signed By: NAOMY URRUTIA MD 12/12/21 1056 PATIENT NAME: DAKOTA BOONE OPERATIVE REPORT DATE OF : 64 REPORT #: [id number] PHYSICIAN: NAOMY URRUTIA MD PCP: AARON GREGG PA-C REPORT IS CONFIDENTIAL AND NOT TO BE RELEASED WITHOUT AUTHORIZATION [facility] [address] [place] [id number] Signed and skin closed with running subcuticular 3-0 Vicryl. Attention was turned towards the lower abdominal incision. In no way could both of the hernias be repaired through the same incision. A similar size incision was made several centimeters inferior to the umbilicus. Dissection carried through the subcutaneous tissue, and with similar dissection, the fascial defect identified. The herniated small bowel was easily reduced ultimately. The fascial edges were from the hernia sac itself again the properitoneal space from the overlying rectus muscle. The hernia sac was opened and there was no sign of ischemic bowel or other problem. The hernia sac was secured at its base with running horizontal mattress of 2-0 Vicryl suture and the hernia sac amputated and passed for pathology. A 6 x 6 inch piece of Prolene mesh was again applied to the properitoneal space and secured with interrupted 0 Prolene sutures with Prolene pledgets, and as on the previous repair, the fascial edges similarly reapproximated and secured with 0 Prolene sutures with Prolene pledgets. Through a separate stab incision, a 7 mm flat Colby drain was placed. Irrigation was undertaken and 10 mL of 0.25% Marcaine with epinephrine injected locally. The Brandon's layer was reapproximated with interrupted 2-0 Vicryl and skin closed with running subcuticular 3-0 Vicryl. Steri-Strips were applied to both wounds as were Acticoat dressings. The patient was ultimately extubated after application of an abdominal binder to diminish abdominal tension on the separate incisions. MD MARIS Barfield/EDITHL /[id number] cc: IMTIAZ Funez MD William S. Powell, MD Copies: TAYLOR ARIAS MD Electronically Signed By: NAOMY URRUTIA MD 12/12/21 1056 PATIENT NAME: DAKOTA BOONE OPERATIVE REPORT DATE OF : 64 REPORT #: [id number] PHYSICIAN: NAOMY URRUTIA MD PCP: AARON GREGG PA-C REPORT IS CONFIDENTIAL AND NOT TO BE RELEASED WITHOUT AUTHORIZATION [facility] [address] [place] [id number] Signed JB GUNN MD Electronically Signed By: NAOMY URRUTIA MD 12/12/21 1056 PATIENT NAME: DAKOTA BOONE OPERATIVE REPORT DATE OF : 64 REPORT #: [id number] PHYSICIAN: NAOMY URRUTIA MD PCP: AARON GREGG PA-C REPORT IS CONFIDENTIAL AND NOT TO BE RELEASED WITHOUT AUTHORIZATION
--- NOTE | 2021-12-12 10:56 | HP ---
[facility] [address], [place] [address] Signed ADMISSION DATE: 12/09/2021 REASON FOR ADMISSION: Symptomatic incisional hernia x2. HISTORY: This 61-year-old obese white woman is known to me from the past having undergone colonoscopy for which polyps were excised. In March of 2019, she underwent sigmoid resection by Dr. Phillips for diverticular problems. She says that she was noted to have a "bump" at the incision on her postoperative visit, which was attributed to "scar tissue." She reviewed this several times with her primary provider, IMTIAZ Funez and there was no significant pain or anything of that sort, but as time went on the area became more problematic. In the past few days, she has had increasing symptoms of pain and unbearable pain which caused her to call her provider, Aaron Barnett, who recommended she go to the emergency room. She went to the emergency room late yesterday, was evaluated by Dr. Gunn and found to have findings consistent with two separate fascial defect with herniation of fat but no hollow viscus incarceration. She was admitted on that basis for incarcerated incisional hernia x2. Her pain is certainly well controlled at this time, particularly as she has been at bedrest in the supine position. The patient has no history of diabetes or hypertension. MEDICATIONS: Include acyclovir, omeprazole, and trazodone. REVIEW OF SYSTEMS: She denies any shortness of breath or chest pain. She has had no dyspnea. No hematemesis or blood per rectum. Denies any left lower abdominal pain. PHYSICAL EXAMINATION: GENERAL: An obese white woman who looks to be comfortable at this time. VITAL SIGNS: BMI is 32.4 with a height of 5 feet 7 inches and 93.8 kg. NECK: Shows no tracheal deviation. CHEST: Clear. HEART: Regular. ABDOMEN: Obese, but soft. A long midline incision is noted. Palpation shows amorphous herniated tissue in the midline incision in two separate areas, not far from each other. Electronically Signed By: NAOMY URRUTIA MD 12/12/21 1056 PATIENT NAME: DAKOTA BOONE HISTORY AND PHYSICAL DATE OF : 64 REPORT #: [id number] PHYSICIAN: NAOMY URRUTIA MD PCP: AARON BARNETT PA-C REPORT IS CONFIDENTIAL AND NOT TO BE RELEASED WITHOUT AUTHORIZATION [facility] [address], [place] [address] Signed EXTREMITIES: Show no clubbing, cyanosis, or edema. LABORATORY STUDIES: Show white count of 7.8, hematocrit of 41.4, platelets 165,000. Electrolytes are essentially normal. Liver enzymes normal as well. Lipase is 58. Urinalysis is normal. Serology shows negative COVID. CT scan was reviewed in detail personally as well as the report. There appears to be herniated omentum in one of the defects. Both defects are large. An inferior to the umbilicus hernia contains some loops of small bowel in small amounts. ASSESSMENT: The patient has two incarcerated hernias, not associated with bowel obstruction nor obvious ischemia. Discussed this with her. We would recommend repair of both of them. Implantation of mesh would most likely be required. The risk of bleeding, infection, recurrence and so forth was reviewed with her. She understands and wished to proceed. We will plan to do this later in the day as appropriate. MD MARIS Barfield/MODL /[id number] cc: Jb Gunn MD Copies: JB GUNN MD ~ Electronically Signed By: NAOMY URRUTIA MD 12/12/21 1056 PATIENT NAME: DAKOTA BOONE HISTORY AND PHYSICAL DATE OF : 64 REPORT #: [id number] PHYSICIAN: NAOMY URRUTIA MD PCP: AARON BARNETT PA-C REPORT IS CONFIDENTIAL AND NOT TO BE RELEASED WITHOUT AUTHORIZATION
== END 2021-12-10 14:34 | disposition home or self-care (01) | DRG 355 ==
LOC: ED 15:53 → MS 15:54
PROVIDERS: ADMIT Surgery; ATTEND Surgery
PROC: 0WUF0JZ Supplement Abdominal Wall with Synthetic Substitute, Open Approach (ICD-10-PCS; 2021-12-09)
PROC: 0WUF0JZ Supplement Abdominal Wall with Synthetic Substitute, Open Approach (ICD-10-PCS; principal; 2021-12-09 15:00)
DX: K43.0 Incisional hernia with obstruction, without gangrene (principal); Z20.822 Contact with and (suspected) exposure to COVID-19; E66.9 Obesity, unspecified; Z68.32 Body mass index [BMI] 32.0-32.9, adult; Z90.710 Acquired absence of both cervix and uterus; Z87.891 Personal history of nicotine dependence; Z90.49 Acquired absence of other specified parts of digestive tract; Z98.890 Other specified postprocedural states; Z88.5 Allergy status to narcotic agent; Z91.030 Bee allergy status; Z79.899 Other long term (current) drug therapy
CPT/HCPCS: 00832; 36415; 74177; 80053; 81001; 83690; 85025; 96376; A9270; C1781; C9803; G0378; J0690; J1100; J1170; J1644; J1885; J2001; J2405; J2704; J3010; J7030; J7121; U0003

== ENCOUNTER 2022-08-22 06:32 | Day surgery (SDC) | payer OTHER ==
[~2022-08-22] VITALS: Ht 167.6 cm; Wt 78.2 kg
--- NOTE | ~2022-08-22 | OR ---
[facility] [address] [place], [place] [address] Draft DATE OF OPERATION: 08/22/2022 SURGEON: Naomy Urrutia MD PREOPERATIVE DIAGNOSES: 1. Persistent and right upper abdominal pain. 2. History of cholecystectomy in 2009 with negative cholangiogram. 3. Incisional hernia, midline. POSTOPERATIVE DIAGNOSES: Mild proximal gastritis. CLOtest was negative. PROCEDURE: Esophagogastroduodenoscopy with biopsy. ANESTHESIA: Intravenous sedation; fentanyl 100 mcg and Versed 7 mg. INDICATION: This 62-year-old white woman complains of right upper abdominal pain. She has a history of cholecystectomy in 2009 for calculous cholecystitis. Review of her operative report showed no evidence of spilled stones or abnormality on cholangiogram. The patient underwent emergency incarcerated incisional hernia repair in November 2021 for upper incisional hernia with large defect and incarcerated omentum and a lower abdominal incision with incarcerated small bowel. Both were fixed by separate incisions. Implantation of mesh in an underlay technique was used. The patient has had considerable amount of weight loss related to the approach down to 172 pounds, having lost 80 pounds in aggregate. She notably complains of right lower abdominal pain this morning since . She has had no associated nausea or vomiting. She is admitted to undergo upper endoscopy as previously planned to better characterize the upper abdominal pain and specifically look for duodenal ulcer or other finding. She understands the risk of bleeding, infection, and perforation and wished to proceed. FINDINGS: Upper endoscopy showed normal esophagus and no evidence of ulceration. The duodenum was reasonably normal. There was mild proximal gastritis. Biopsies were obtained. CLOtest was negative. Vocal cords were normal. DESCRIPTION OF PROCEDURE: PATIENT NAME: DAKOTA BOONE OPERATIVE REPORT DATE OF : 64 REPORT #: [id number] PHYSICIAN: NAOMY URRUTIA MD PCP: AARON GREGG PA-C REPORT IS CONFIDENTIAL AND NOT TO BE RELEASED WITHOUT AUTHORIZATION [facility] [address] [place], [place] [address] Draft The patient was brought to the endoscopy suite and given topical lidocaine hypopharyngeal anesthesia. She was placed in the lateral decubitus position and given intravenous sedation with full cardiopulmonary monitoring. A bite block was placed. An Olympus video upper endoscope was passed in the hypopharynx. Vocal cords were visualized as normal. The scope was advanced to the esophagus without problem, throughout its length it was normal. Scope was passed to the stomach, which was insufflated with air. There was no sign of bile. Antral folds were normal. Pylorus was normal. Scope was passed through into the duodenum. The 2nd and 3rd portions appeared normal. The bulbar portion showed no specific finding of ulceration or severe inflammation. Biopsies were obtained. Scope was withdrawn and biopsies taken of the antrum for both JOE and pathologic testing. Retroflexed view showed an intact flap valve. Proximal stomach had a fair amount of lymphoid hyperplasia suggestive of mild chronic proximal gastritis. Biopsies were obtained there as well. The scope was withdrawn and biopsies were taken of the distal esophagus and the mid esophagus, although there was no specific abnormality. The patient was then taken to the recovery room in good condition having suffered no complication. CONCLUDING DIAGNOSIS: Mild proximal gastritis, unlikely to account for her symptoms. More likely symptoms related to her incisional hernia. As regards to her more recent onset of right lower abdominal pain, if this pain should intensify, we will perform CT scan to assess for appendicitis. Clinical examination at this time shows no sign of peritonitis and although there is mild tenderness on deep palpation, this is not particularly unusual for my examination of her in the past. MD MARIS Barfield/EDITHL /[id number] cc: IMTIAZ Funez Copies: PATIENT NAME: DAKOTA BOONE OPERATIVE REPORT DATE OF : 64 REPORT #: [id number] PHYSICIAN: NAOMY URRUTIA MD PCP: AARON GREGG PA-C REPORT IS CONFIDENTIAL AND NOT TO BE RELEASED WITHOUT AUTHORIZATION [facility] [address] [place] [id number] Draft ~ PATIENT NAME: DAKOTA BOONE OPERATIVE REPORT DATE OF : 64 REPORT #: [id number] PHYSICIAN: NAOMY URRUTIA MD PCP: AARON GREGG PA-C REPORT IS CONFIDENTIAL AND NOT TO BE RELEASED WITHOUT AUTHORIZATION
[~2022-08-22 06:32] MED LIST changes: +ACETAMINOPHEN500 M1 PO; +ACETAMINOPHEN500 MG PO; +CEPHALEXIN500 M1 PO; +HYDROCODON-ACE1 EA10 PO; +IBUPROFEN600 MG PO; +OXYCODON-ACETA1 EAC2 PO
--- NOTE | 2022-08-22 08:25 | NUR ---
08/22/22 0825 Stacy Adams 0754 PT ARRIVED IN PACU AWAKE WITH NO C/O'S. 0810 DR AT BEDSIDE. ALL QUESTIONS ANSWERED. 0820 SITTING AT SIDE OF BED GETTING DRESSED WITH STAND BY ASSIST. 0825 DC INSTRUCTIONS GIVEN.
--- NOTE | 2022-08-25 12:13 | PATH ---
[facility] [address] [place], [place] [address] Signed SPECIMEN(S): A DUODENAL BIOPSY SPECIMEN(S): B ANTRUM/PYLORUS BIOPSY SPECIMEN(S): C PROXIMAL STOMACH BIOPSY SPECIMEN(S): D LOWER ESOPHAGEAL BIOPSY SPECIMEN(S): E MIDDLE ESOPHAGEAL BIOPSY SPECIMEN SOURCE: A. DUODENAL BIOPSY B. ANTRUM/PYLORUS BIOPSY C. PROXIMAL STOMACH BIOPSY D. LOWER ESOPHAGEAL BIOPSY E. MIDDLE ESOPHAGEAL BIOPSY CLINICAL HISTORY: History of abdominal pain; nausea. Post: Mild gastritis. FINAL PATHOLOGIC DIAGNOSIS: A. Duodenum, biopsy: - Mild chronic peptic duodenitis. (see comment) - Negative for dysplasia. B. Stomach, antrum/pylorus, biopsy: - Gastric antral-type mucosa with minimal chronic inflammation. - Negative for Helicobacter pylori-type organisms on HE stain. - Negative for intestinal metaplasia and dysplasia. C. Stomach, proximal, biopsy: - Gastric body-type mucosa with minimal chronic inflammation. - Negative for Helicobacter pylori-type organisms on HE stain. - Negative for intestinal metaplasia and dysplasia. D. Esophagus, lower, biopsy: - Squamous mucosa with no significant pathologic alteration. - Negative for increased intraepithelial eosinophils and active inflammation. - Negative for glandular mucosa and goblet cell metaplasia. - Negative for dysplasia. E. Esophagus, middle, biopsy: - Squamous mucosa with no significant pathologic alteration. - Negative for increased intraepithelial eosinophils and active inflammation. - Negative for glandular mucosa and goblet cell metaplasia. - Negative for dysplasia. COMMENT: PATIENT NAME: DAKOTA BOONE PATHOLOGY DATE OF : 64 REPORT #: [id number] PHYSICIAN: INA CONTRERAS PCP: AARON GREGG PA-C REPORT IS CONFIDENTIAL AND NOT TO BE RELEASED WITHOUT AUTHORIZATION [facility] [address], [place] [address] Signed A) An immunohistochemical stain for Helicobacter pylori has been ordered on the duodenum biopsy (specimen A), and the results will be reported in an addendum, when available. NRT:cml:C2NR MICROSCOPIC EXAMINATION: Histologic sections of all submitted blocks are examined by light microscopy. These findings, together with the gross examination, support the pathologic diagnosis. GROSS DESCRIPTION: Five specimens are received in five containers, labeled "TO." A. The specimen, labeled "TO, duodenum biopsy," is received in formalin and consists of three murphy soft tissue fragments that measure 0.1 to 0.3 cm in greatest dimension. The specimen is entirely submitted in cassette (A1). B. The specimen, labeled "TO, antrum biopsy," is received in formalin and consists of two murphy soft tissue fragments that measure 0.2 to 0.3 cm in greatest dimension. The specimen is entirely submitted in cassette (B1). C. The specimen, labeled "TO, proximal stomach biopsy," is received in formalin and consists of two murphy soft tissue fragments that measure 0.1 to 0.3 cm in greatest dimension. The specimen is entirely submitted in cassette (C1). D. The specimen, labeled "TO, lower esophagus biopsy," is received in formalin and consists of two murphy soft tissue fragments that measure 0.2 to 0.3 cm in greatest dimension. The specimen is entirely submitted in cassette (D1). E. The specimen, labeled "TO, middle esophagus biopsy," is received in formalin and consists of one murphy soft tissue fragment that measures 0.2 cm in greatest dimension. The specimen is entirely submitted in cassette (E1). JS (under the direct supervision of a pathologist) The Gross Description was prepared using a voice recognition system. The report was reviewed for accuracy; however, sound-alike word errors, addition and/or deletions may occur. If there is any question about this report, please contact Client Services. PERFORMING LABORATORY: The technical component was performed by [employer], [address] [place] [id number] (CLIA# [id number]). Professional interpretation was PATIENT NAME: DAKOTA BOONE PATHOLOGY DATE OF : 64 REPORT #: [id number] PHYSICIAN: INA CONTRERAS PCP: AARON GREGG PA-C REPORT IS CONFIDENTIAL AND NOT TO BE RELEASED WITHOUT AUTHORIZATION [facility] [address] [place] [id number] Signed performed by [facility], [address], [facility], [place] [address] (CLIA# [id number]). Diagnostician: Sherita Cee MD Pathologist Electronically Signed 08/25/2022 Copies: ~ PATIENT NAME: DAKOTA BOONE PATHOLOGY DATE OF : 64 REPORT #: [id number] PHYSICIAN: INA PATHOLOGY PCP: AARON GREGG PA-C REPORT IS CONFIDENTIAL AND NOT TO BE RELEASED WITHOUT AUTHORIZATION
== END 2022-08-22 08:30 | disposition home or self-care (01) ==
LOC: OPS 06:32 → DS 06:32 → OPS 07:30
PROVIDERS: ATTEND Surgery
PROC: 0DB68ZX Excision of Stomach, Via Natural or Artificial Opening Endoscopic, Diagnostic (ICD-10-PCS; 2022-08-22)
PROC: 0DB28ZX Excision of Middle Esophagus, Via Natural or Artificial Opening Endoscopic, Diagnostic (ICD-10-PCS; 2022-08-22)
PROC: 0DB38ZX Excision of Lower Esophagus, Via Natural or Artificial Opening Endoscopic, Diagnostic (ICD-10-PCS; 2022-08-22)
PROC: 0DB98ZX Excision of Duodenum, Via Natural or Artificial Opening Endoscopic, Diagnostic (ICD-10-PCS; principal; 2022-08-22 07:30)
DX: K29.50 Unspecified chronic gastritis without bleeding (principal); K43.2 Incisional hernia without obstruction or gangrene; E66.9 Obesity, unspecified; K21.00 Gastro-esophageal reflux disease with esophagitis, without bleeding; K29.80 Duodenitis without bleeding
CPT/HCPCS: 99153; G0500; J2250; J3010; J7121